=== PATIENT | female | born 1965 | race Hispanic/Latino ===

== ENCOUNTER → 2019-02-07 | Outpatient (CLI) | payer OTHER | END | disposition home or self-care (01) | LOC: RAH 15:19 | PROVIDERS: ATTEND Internal Medicine | DX: Z12.31 Encounter for screening mammogram for malignant neoplasm of breast (principal); N64.89 Other specified disorders of breast | CPT/HCPCS: 77067 ==

== ENCOUNTER → 2019-02-27 | Outpatient (CLI) | payer OTHER ==
[~2019-02-27] MED LIST: DULA1.5P SQ; LISI-617 PO; PRAV40TA3 PO
== END | disposition home or self-care (01) ==
LOC: RAH 10:47
PROVIDERS: ATTEND Internal Medicine
DX: N63.22 Unspecified lump in the left breast, upper inner quadrant (principal)
CPT/HCPCS: 76641; 77065

== ENCOUNTER 2019-03-02 05:34 | Day surgery (SDC) | payer OTHER ==
[~2019-03-02] VITALS: Ht 154.9 cm; Wt 67.1 kg
[2019-03-02] MEDS ORDERED: SODIUM CHLORIDE 0.9% 1000ML 1,000 ML IV ONE (05:46)
[2019-03-02 06:17] VITALS: BP 144/68
[2019-03-02] MEDS ORDERED: PRAV40TA3 PO (06:31)
[2019-03-02] MEDS ORDERED: LISI-617 PO (06:31)
[2019-03-02] MEDS ORDERED: DULA1.5P SQ (06:31)
[2019-03-02] MEDS ORDERED: LIDOCAINE HCL 1% 20 ML VIAL ONE (07:04)
[2019-03-02] MEDS ORDERED: PROPOFOL 10 MG/ML 20ML VIAL IV ONE (07:04)
[2019-03-02 07:21] VITALS: BP 100/52
== END 2019-03-02 07:47 | disposition home or self-care (01) ==
LOC: ENDO 05:34 → DAH 05:34 → ENDO 07:47
PROVIDERS: ATTEND Internal Medicine
DX: Z12.11 Encounter for screening for malignant neoplasm of colon (principal); E11.9 Type 2 diabetes mellitus without complications; E78.5 Hyperlipidemia, unspecified; Z88.0 Allergy status to penicillin; Z90.710 Acquired absence of both cervix and uterus
CPT/HCPCS: 45378; 82948 ×2; A4215; A4221; A4222; A4223; A4606; A4615; A4663; J2704; J7030

== ENCOUNTER 2019-04-29 22:52 | Emergency (ER) | payer OTHER ==
[2019-04-29] MEDS ORDERED: ACETAMINOPHEN EXTRA STRENGTH 500 MG TABLET ONE (23:42)
[2019-04-29 23:45] LABS: BASOPHILS % (AUTO) 0.7 % (0.0-5.0); HEMATOCRIT 33.9 % (36-48); LYMPHOCYTES % (AUTO) 27.4 % (21.0-51.0); MEAN CORPUSCULAR HEMOGLOBIN 27.4 pg (27.0-33.0); MEAN CORPUSCULAR HGB CONC 33.3 g/dL (32.0-36.0); MEAN CORPUSCULAR VOLUME 82.1 fL (79-99); MONOCYTES % (AUTO) 5.6 % (3.0-13.0); PLATELET COUNT (AUTO) 262 K/uL (130-400); RED BLOOD CELL COUNT(AUTO) 4.13 MIL/uL (4.00-5.50); RED CELL DISTRIBUTION WIDTH 12.2 % (11.0-15.5); WHITE BLOOD COUNT (AUTO) 9.8 K/uL (4.8-10.8)
[2019-04-29 23:57] LABS: CREATININE 0.6 mg/dL (0.5-1.5); POTASSIUM 4.1 mmol/L (3.5-5.1)
[2019-04-30 00:07] LABS: ALBUMIN 3.4 g/dL (3.5-5.0); BILIRUBIN,TOTAL 0.4 mg/dL (0.2-1.0); CRP QUANTITATIVE 20.2 mg/L (0.00-9.0); TOTAL PROTEIN, SERUM 7.9 g/dL (6.0-8.3); URIC ACID 3.6 mg/dL (2.6-7.2)
[2019-04-30 00:53] LABS: ERYTHROCYTE SEDIMENTATION RATE 80 MM/HR (0-30)
[2019-04-30] MEDS ORDERED: KETOROLAC TROMETHAMINE 30MG/ML ONE (00:56)
[2019-04-30] MEDS ORDERED: LIDOCAINE HCL-MPF 1% 2ML VIAL ONE (02:37)
[2019-04-30] MEDS ORDERED: CEFTRIAXONE SODIUM 1 GM ONE (02:38)
[2019-04-30] MEDS ORDERED: LIDOCAINE 5% TOPICAL PATCH TP ONE (02:38)
== END 2019-04-30 03:30 | disposition home or self-care (01) ==
LOC: EDH 22:52
DX: L03.115 Cellulitis of right lower limb (principal)
CPT/HCPCS: 29125; 36415; 73090; 73130; 80053; 84145; 84550; 85025; 85651; 86140; 96372 ×2; 99285; J0696; J1885; J3490

== ENCOUNTER 2019-11-06 23:04 | Emergency (ER) | payer OTHER ==
[2019-11-06 23:32] LABS: BASOPHILS % (AUTO) 0.7 % (0.0-5.0); EOSINOPHILS % (AUTO) 2.6 % (0.0-8.0); HEMATOCRIT 35.2 % (36-48); LYMPHOCYTES % (AUTO) 31.4 % (21.0-51.0); MEAN CORPUSCULAR HEMOGLOBIN 26.9 pg (27.0-33.0); MEAN CORPUSCULAR VOLUME 81.5 fL (79-99); MONOCYTES % (AUTO) 6.3 % (3.0-13.0); NEUTROPHILS % (AUTO) 58.4 % (40.0-77.0); PLATELET COUNT (AUTO) 341 K/uL (130-400); RED BLOOD CELL COUNT(AUTO) 4.32 MIL/uL (4.00-5.50); WHITE BLOOD COUNT (AUTO) 8.8 K/uL (4.8-10.8)
[2019-11-06] MEDS ORDERED: MORPHINE SULFATE 2 MG/ML 1ML SYG ONE (23:35)
[2019-11-06 23:41] LABS: CREATININE 0.8 mg/dL (0.5-1.5); POTASSIUM 4.1 mmol/L (3.5-5.1)
[2019-11-06 23:45] LABS: ALBUMIN 3.5 g/dL (3.5-5.0); BILIRUBIN,TOTAL 0.4 mg/dL (0.2-1.0); CRP QUANTITATIVE 34.6 mg/L (0.00-9.0); TOTAL PROTEIN, SERUM 8.5 g/dL (6.0-8.3)
[2019-11-07 00:36] LABS: ERYTHROCYTE SEDIMENTATION RATE 90 MM/HR (0-30)
[2019-11-07] MEDS ORDERED: LEVOFLOXACIN 500 MG/D5W 100 ML 100 ML ONE (01:18)
[2019-11-07] MEDS ORDERED: MORPHINE SULFATE 2 MG/ML 1ML SYG ONE (01:19)
[2019-11-07] MEDS ORDERED: KETOROLAC TROMETHAMINE 30MG/ML ONE (01:59)
[2019-11-07] MEDS ORDERED: DEXAMETHASONE SOD PHOSPHATE 4 MG/ML 1ML VIAL ONE (01:59)
[2019-11-07] MEDS ORDERED: SODIUM CHLORIDE 0.9% 500ML 500 ML IV ONE (02:00)
== END 2019-11-07 03:15 | disposition home or self-care (01) ==
LOC: EDH 23:04
DX: M77.11 Lateral epicondylitis, right elbow (principal); E11.65 Type 2 diabetes mellitus with hyperglycemia; I10 Essential (primary) hypertension; Z88.0 Allergy status to penicillin; Z90.710 Acquired absence of both cervix and uterus
CPT/HCPCS: 29105; 36415; 73070; 80053; 85025; 85651; 86140; 96365; 96375 ×2; 96376; 99284; J1100; J1885; J1956; J7040

== ENCOUNTER → 2019-11-12 | Outpatient (CLI) | payer OTHER ==
[2019-11-12 13:41] LABS: CREATININE 0.7 mg/dL (0.5-1.5); POTASSIUM 4.9 mmol/L (3.5-5.1)
== END | disposition home or self-care (01) ==
LOC: LAB 12:53
PROVIDERS: ATTEND Internal Medicine
DX: M25.521 Pain in right elbow (principal)
CPT/HCPCS: 36415; 80048

== ENCOUNTER 2019-11-13 00:25 | Emergency (ER) | payer OTHER ==
[2019-11-13] MEDS ORDERED: SODIUM CHLORIDE 0.9% 1000ML 1,000 ML IV ONE (00:26)
[2019-11-13] MEDS ORDERED: ASPIRIN 325 MG TABLET ONE (00:36)
[2019-11-13 00:46] LABS: BASOPHILS % (AUTO) 0.5 % (0.0-5.0); EOSINOPHILS % (AUTO) 1.3 % (0.0-8.0); HEMATOCRIT 34.3 % (36-48); LYMPHOCYTES % (AUTO) 31.2 % (21.0-51.0); MEAN CORPUSCULAR HEMOGLOBIN 26.8 pg (27.0-33.0); MEAN CORPUSCULAR HGB CONC 32.9 g/dL (32.0-36.0); MEAN CORPUSCULAR VOLUME 81.3 fL (79-99); MONOCYTES % (AUTO) 5.2 % (3.0-13.0); NEUTROPHILS % (AUTO) 61.3 % (40.0-77.0); PLATELET COUNT (AUTO) 260 K/uL (130-400); RED BLOOD CELL COUNT(AUTO) 4.22 MIL/uL (4.00-5.50); RED CELL DISTRIBUTION WIDTH 13.2 % (11.0-15.5)
[2019-11-13 00:53] LABS: CREATININE 0.9 mg/dL (0.5-1.5); POTASSIUM 4.6 mmol/L (3.5-5.1)
[2019-11-13 00:58] LABS: ALBUMIN 3.2 g/dL (3.5-5.0); BILIRUBIN,TOTAL 0.3 mg/dL (0.2-1.0); TOTAL PROTEIN, SERUM 7.9 g/dL (6.0-8.3)
[2019-11-13 01:07] LABS: INR 0.9 (0.85-1.15); PARTIAL THROMBOPLASTIN TIME 26.4 SEC (26.3-35.5); PROTHROMBIN TIME 9.8 SEC (9.6-11.6)
[2019-11-13] MEDS ORDERED: KETOROLAC TROMETHAMINE 60 MG/2 ML VIAL ONE (01:45)
[2019-11-13] MEDS ORDERED: ORPHENADRINE CITRATE 30 MG/ML ML ONE (01:45)
[2019-11-13] MEDS ORDERED: LIDOCAINE 5% TOPICAL PATCH TP ONE (01:46)
[2019-11-13] MEDS ORDERED: IOHEXOL 350 MG/ML 100ML INFUS..BTL IV ONE (02:44)
== END 2019-11-13 04:03 | disposition home or self-care (01) ==
LOC: EDH 00:25
DX: R07.89 Other chest pain (principal); M62.838 Other muscle spasm; M54.6 Pain in thoracic spine; I10 Essential (primary) hypertension; E11.9 Type 2 diabetes mellitus without complications; Z88.0 Allergy status to penicillin; Z90.710 Acquired absence of both cervix and uterus; Z98.890 Other specified postprocedural states
CPT/HCPCS: 36415; 71275; 80053; 82550; 82948; 83690; 83880; 84484; 85025; 85378; 85610; 85730; 93005; 96361; 96374; 96375; 99285; J1885; J2360; J7030; Q9967

== ENCOUNTER → 2019-11-16 | Outpatient (CLI) | payer OTHER ==
[~2019-11-16] MED LIST changes: +GADODIAMIDE 10 MMOL/20 ML VIAL IV ONE
== END | disposition home or self-care (01) ==
LOC: RAH 10:42
PROVIDERS: ATTEND Internal Medicine
DX: M25.521 Pain in right elbow (principal)
CPT/HCPCS: 73223; A9579

== ENCOUNTER 2020-03-03 07:17 | Emergency (ER) | payer OTHER ==
[~2020-03-03 07:17] MED LIST changes: -GADODIAMIDE 10 MMOL/20 ML VIAL IV ONE
[2020-03-03] MEDS ORDERED: MAG HYDROX/AL HYDROX/SIMETH ES 30 ML SUSP UDCUP ONE (07:48)
[2020-03-03] MEDS ORDERED: LIDOCAINE HCL 2% VISCOUS 15 ML UDCUP ONE (07:48)
[2020-03-03 07:54] LABS: BASOPHILS % (AUTO) 0.6 % (0.0-5.0); EOSINOPHILS % (AUTO) 1.7 % (0.0-8.0); HEMATOCRIT 37.1 % (36-48); LYMPHOCYTES % (AUTO) 27.6 % (21.0-51.0); MEAN CORPUSCULAR HEMOGLOBIN 27.5 pg (27.0-33.0); MEAN CORPUSCULAR HGB CONC 33.7 g/dL (32.0-36.0); MEAN CORPUSCULAR VOLUME 81.5 fL (79-99); MONOCYTES % (AUTO) 4.8 % (3.0-13.0); NEUTROPHILS % (AUTO) 64.8 % (40.0-77.0); PLATELET COUNT (AUTO) 265 K/uL (130-400); RED BLOOD CELL COUNT(AUTO) 4.55 MIL/uL (4.00-5.50); RED CELL DISTRIBUTION WIDTH 11.9 % (11.0-15.5); WHITE BLOOD COUNT (AUTO) 7.7 K/uL (4.8-10.8)
[2020-03-03 08:11] LABS: APPEARANCE,URINE Clear (CLEAR); BILIRUBIN,URINE Negative (NEGATIVE); COLOR,URINE Yellow (YELLOW); GLUCOSE, URINE (UA) >=1000 mg/dL (NEGATIVE); KETONES,URINE Negative (NEGATIVE); LEUKOCYTE ESTERASE ,URINE Negative (NEGATIVE); NITRATE,URINE Negative (NEGATIVE); OCCULT BLOOD,URINE Negative (NEGATIVE); PROTEIN,URINE Negative (NEGATIVE); UROBILINOGEN,URINE 0.2 mg/dL (0.2-1.0)
[2020-03-03 08:17] LABS: BACTERIA,URINE Rare /HPF (None Seen); SQUAMOUS EPITHELIAL CELL,UR Rare /HPF (0-2); YEAST,URINE BUDDING Few /HPF (None Seen)
[2020-03-03 08:17] LABS: ALBUMIN 3.6 g/dL (3.5-5.0); BILIRUBIN,TOTAL 0.3 mg/dL (0.2-1.0); CREATININE 0.6 mg/dL (0.5-1.5); POTASSIUM 3.9 mmol/L (3.5-5.1); TOTAL PROTEIN, SERUM 8.2 g/dL (6.0-8.3)
[2020-03-03] MEDS ORDERED: FLUCONAZOLE 100 MG TAB ONE (09:28)
== END 2020-03-03 09:43 | disposition home or self-care (01) ==
LOC: EDH 07:17
DX: E11.65 Type 2 diabetes mellitus with hyperglycemia (principal); B37.9 Candidiasis, unspecified; I10 Essential (primary) hypertension; Z88.0 Allergy status to penicillin; Z90.710 Acquired absence of both cervix and uterus; Z98.890 Other specified postprocedural states
CPT/HCPCS: 36415; 80053; 81001; 82948; 84484; 85025; 93005; 96360; 96361

== ENCOUNTER 2020-04-26 20:51 | Emergency (ER) | payer OTHER ==
[2020-04-26] MEDS ORDERED: SODIUM CHLORIDE 0.9% 250 ML IV ONE (21:03)
[2020-04-26 21:25] LABS: BASOPHILS % (AUTO) 0.5 % (0.0-5.0); EOSINOPHILS % (AUTO) 2.8 % (0.0-8.0); LYMPHOCYTES % (AUTO) 30.4 % (21.0-51.0); MEAN CORPUSCULAR HEMOGLOBIN 27.2 pg (27.0-33.0); MEAN CORPUSCULAR HGB CONC 32.9 g/dL (32.0-36.0); MEAN CORPUSCULAR VOLUME 82.7 fL (79-99); MONOCYTES % (AUTO) 6.4 % (3.0-13.0); NEUTROPHILS % (AUTO) 59.6 % (40.0-77.0); PLATELET COUNT (AUTO) 234 K/uL (130-400); RED BLOOD CELL COUNT(AUTO) 4.23 MIL/uL (4.00-5.50); RED CELL DISTRIBUTION WIDTH 12.1 % (11.0-15.5); WHITE BLOOD COUNT (AUTO) 9.4 K/uL (4.8-10.8)
[2020-04-26] MEDS ORDERED: ONDANSETRON HCL 4 MG/2 ML VIAL ONE (21:35)
[2020-04-26] MEDS ORDERED: MORPHINE SULFATE 4 MG/1ML SYG ONE (21:35)
[2020-04-26 21:43] LABS: ALBUMIN 3.2 g/dL (3.5-5.0); BILIRUBIN,TOTAL 0.3 mg/dL (0.2-1.0); CREATININE 0.8 mg/dL (0.5-1.5); POTASSIUM 4.1 mmol/L (3.5-5.1); TOTAL PROTEIN, SERUM 7.8 g/dL (6.0-8.3)
[2020-04-26] MEDS ORDERED: INSULIN HUMULIN R 100 UNIT/ML 3ML ONE (23:16)
== END 2020-04-27 00:20 | disposition home or self-care (01) ==
LOC: EDH 20:51
DX: M79.641 Pain in right hand (principal); E08.65 Diabetes mellitus due to underlying condition with hyperglycemia; I10 Essential (primary) hypertension; Z88.0 Allergy status to penicillin; Z90.710 Acquired absence of both cervix and uterus; Z98.890 Other specified postprocedural states
CPT/HCPCS: 36415; 71045; 73130; 80053; 82010; 82550; 82948 ×2; 83690; 84484; 84550; 85025; 93005; 96361; 96374; 96375; 99285; J1815; J2270; J2405; J7050

== ENCOUNTER → 2020-04-28 | Outpatient (CLI) | payer OTHER ==
[2020-04-28 12:01] LABS: BASOPHILS % (AUTO) 0.7 % (0.0-5.0); EOSINOPHILS % (AUTO) 2.7 % (0.0-8.0); HEMATOCRIT 36.4 % (36-48); MEAN CORPUSCULAR HEMOGLOBIN 27.4 pg (27.0-33.0); MEAN CORPUSCULAR HGB CONC 33.2 g/dL (32.0-36.0); MEAN CORPUSCULAR VOLUME 82.5 fL (79-99); MONOCYTES % (AUTO) 4.4 % (3.0-13.0); NEUTROPHILS % (AUTO) 65.8 % (40.0-77.0); PLATELET COUNT (AUTO) 259 K/uL (130-400); RED BLOOD CELL COUNT(AUTO) 4.41 MIL/uL (4.00-5.50); RED CELL DISTRIBUTION WIDTH 11.9 % (11.0-15.5); WHITE BLOOD COUNT (AUTO) 9.1 K/uL (4.8-10.8)
[2020-04-28 12:08] LABS: HEMOGLOBIN A1C 12.1 % (4.0-6.0)
[2020-04-28 12:13] LABS: ALBUMIN 3.4 g/dL (3.5-5.0); BILIRUBIN,TOTAL 0.5 mg/dL (0.2-1.0); CREATININE 0.7 mg/dL (0.5-1.5); POTASSIUM 4.6 mmol/L (3.5-5.1); TOTAL PROTEIN, SERUM 8.4 g/dL (6.0-8.3); URIC ACID 3.4 mg/dL (2.6-7.2)
[2020-04-28 13:21] LABS: ERYTHROCYTE SEDIMENTATION RATE 125 MM/HR (0-30)
== END | disposition home or self-care (01) ==
LOC: LAB 11:34
PROVIDERS: ATTEND Internal Medicine
DX: E11.65 Type 2 diabetes mellitus with hyperglycemia (principal); M25.431 Effusion, right wrist
CPT/HCPCS: 36415; 80053; 83036; 84550; 85025; 85651; 86038; 86140; 86215; 86235; 86431

== ENCOUNTER 2020-04-30 11:34 | Observation (INO) | payer OTHER ==
[~2020-04-30] VITALS: Ht 154.9 cm; Wt 67.3 kg
[~2020-04-30 11:34] MED LIST changes: -LISI-617 PO; +LISI-809 PO
[2020-04-30] MEDS: PANTOPRAZOLE 40 MG/VIAL IVP SCH (11:53)
[2020-04-30 11:54] LABS: BASOPHILS % (AUTO) 0.5 % (0.0-5.0); EOSINOPHILS % (AUTO) 1.7 % (0.0-8.0); HEMATOCRIT 39.7 % (36-48); LYMPHOCYTES % (AUTO) 36.1 % (21.0-51.0); MEAN CORPUSCULAR HEMOGLOBIN 27.2 pg (27.0-33.0); MEAN CORPUSCULAR VOLUME 82.5 fL (79-99); MONOCYTES % (AUTO) 4.4 % (3.0-13.0); NEUTROPHILS % (AUTO) 56.8 % (40.0-77.0); PLATELET COUNT (AUTO) 308 K/uL (130-400); RED BLOOD CELL COUNT(AUTO) 4.81 MIL/uL (4.00-5.50); RED CELL DISTRIBUTION WIDTH 12.2 % (11.0-15.5); WHITE BLOOD COUNT (AUTO) 13.1 K/uL (4.8-10.8)
[2020-04-30] MEDS ORDERED: GLUCAGON 1MG KIT 1 MG ML IM PRN (12:00)
[2020-04-30] MEDS ORDERED: 1/2 NORMAL SALINE 1,000 ML IV SCH (12:00)
[2020-04-30] MEDS ORDERED: DEXTROSE 50%-WATER 50 ML DISP.SYRIN IV PRN (12:00)
[2020-04-30 12:07] LABS: CREATININE 0.7 mg/dL (0.5-1.5); POTASSIUM 3.8 mmol/L (3.5-5.1)
[2020-04-30 12:16] LABS: ALBUMIN 3.9 g/dL (3.5-5.0); BILIRUBIN,TOTAL 0.3 mg/dL (0.2-1.0); TOTAL PROTEIN, SERUM 9.3 g/dL (6.0-8.3)
[2020-04-30 13:13] LABS: APPEARANCE,URINE Clear (CLEAR); BILIRUBIN,URINE Negative (NEGATIVE); COLOR,URINE Yellow (YELLOW); GLUCOSE, URINE (UA) Negative (NEGATIVE); KETONES,URINE Negative (NEGATIVE); LEUKOCYTE ESTERASE ,URINE Negative (NEGATIVE); NITRATE,URINE Negative (NEGATIVE); OCCULT BLOOD,URINE Negative (NEGATIVE); PROTEIN,URINE Negative (NEGATIVE); UROBILINOGEN,URINE 0.2 mg/dL (0.2-1.0)
[2020-04-30] MEDS ORDERED: CEFTRIAXONE SODIUM 2 GM VIAL ONE (13:28)
[2020-04-30 16:29] VITALS: BP 108/58
[2020-04-30] MEDS: INSULIN R PO SS1 SQ SCH ×2 (16:30→20:53)
[2020-04-30] MEDS: METFORMIN HCL 500 MG TAB.SR.24H PO SCH (17:08)
[2020-04-30 19:30] VITALS: BP 122/63
[2020-04-30] MEDS: INSULIN GLARGINE 100 UNITS/ML 10 ML VIAL SQ SCH (20:52)
[2020-04-30] MEDS: MORPHINE SULFATE 4 MG/1ML SYG IVP PRN (22:01)
[2020-04-30 23:40] VITALS: BP 118/66
[2020-05-01 03:46] LABS: HEMATOCRIT 33.9 % (36-48); MEAN CORPUSCULAR HEMOGLOBIN 27.5 pg (27.0-33.0); MEAN CORPUSCULAR HGB CONC 32.7 g/dL (32.0-36.0); MEAN CORPUSCULAR VOLUME 84.1 fL (79-99); RED BLOOD CELL COUNT(AUTO) 4.03 MIL/uL (4.00-5.50); RED CELL DISTRIBUTION WIDTH 12.4 % (11.0-15.5); WHITE BLOOD COUNT (AUTO) 9.7 K/uL (4.8-10.8)
[2020-05-01 03:58] LABS: CREATININE 0.7 mg/dL (0.5-1.5); CRP QUANTITATIVE 18.2 mg/L (0.00-9.0); POTASSIUM 3.9 mmol/L (3.5-5.1)
[2020-05-01 04:01] VITALS: BP 114/51
[2020-05-01] MEDS: INSULIN R PO SS1 SQ SCH ×4 (05:59→21:00)
[2020-05-01 08:50] VITALS: BP 92/69
[2020-05-01] MEDS ORDERED: GLIMEPIRIDE 2 MG TABLET PO SCH (09:00)
[2020-05-01] MEDS ORDERED: PREDNISONE 20 MG TABLET PO SCH (09:00)
[2020-05-01] MEDS ORDERED: LISINOPRIL 5 MG TABLET PO SCH (09:00)
[2020-05-01] MEDS: PANTOPRAZOLE 40 MG/VIAL IVP SCH (09:14)
[2020-05-01] MEDS: METFORMIN HCL 500 MG TAB.SR.24H PO SCH ×2 (09:20→17:50)
[2020-05-01] MEDS ORDERED: KETOROLAC TROMETHAMINE 30MG/ML IV SCH (11:53)
[2020-05-01 12:11] VITALS: BP 116/62
[2020-05-01] MEDS ORDERED: CEFTRIAXONE SODIUM 2 GM VIAL IVP SCH (13:00)
[2020-05-01 16:54] VITALS: BP 111/58
[2020-05-01 20:00] VITALS: BP 138/80
[2020-05-01] MEDS: INSULIN GLARGINE 100 UNITS/ML 10 ML VIAL SQ SCH (21:29)
[2020-05-02] VITALS: BP 137/77
[2020-05-02] MEDS: MORPHINE SULFATE 4 MG/1ML SYG IVP PRN (03:38)
[2020-05-02 04:00] VITALS: BP 140/81
[2020-05-02 04:40] LABS: HEMATOCRIT 32.6 % (36-48); MEAN CORPUSCULAR HEMOGLOBIN 27.6 pg (27.0-33.0); MEAN CORPUSCULAR HGB CONC 32.8 g/dL (32.0-36.0); RED BLOOD CELL COUNT(AUTO) 3.88 MIL/uL (4.00-5.50); RED CELL DISTRIBUTION WIDTH 12.2 % (11.0-15.5); WHITE BLOOD COUNT (AUTO) 10.9 K/uL (4.8-10.8)
[2020-05-02 05:05] LABS: CREATININE 0.6 mg/dL (0.5-1.5); POTASSIUM 3.1 mmol/L (3.5-5.1)
[2020-05-02] MEDS: INSULIN R PO SS1 SQ SCH (06:46)
[2020-05-02] MEDS ORDERED: POTASSIUM CHLORIDE 20 MEQ ERTAB PO ONE (06:52)
[2020-05-02] MEDS ORDERED: METHYLPREDNISOLONE SOD SUCC 40MG/ML 1ML ONE (06:52)
[2020-05-02] MEDS ORDERED: POTASSIUM CHLORIDE 20 MEQ ERTAB PO SCH (07:00)
[2020-05-02] MEDS ORDERED: GLIM2TAB30 PO (07:30)
[2020-05-02] MEDS ORDERED: METF-446 PO (07:30)
[2020-05-02] MEDS ORDERED: PRED20TA3 PO (07:30)
[2020-05-02] MEDS ORDERED: METFORMIN HCL 500 MG TABLET PO SCH (08:00)
[2020-05-02] MEDS ORDERED: METHYLPREDNISOLONE SOD SUCC 125MG/2ML VIAL IVP SCH (08:00)
[2020-05-02] MEDS ORDERED: LISINOPRIL 10 MG TABLET PO SCH (09:00)
[2020-05-02] MEDS ORDERED: PREDNISONE 20 MG TABLET PO SCH (09:00)
[2020-05-02] MEDS ORDERED: GLIMEPIRIDE 2 MG TABLET PO SCH (09:00)
[2020-05-02] MEDS ORDERED: **HM**TRULICITY 1.5MG SQ SCH (09:00)
[2020-05-02] MEDS ORDERED: NON-FORMULARY MEDICATION 1 EACH (Metformin HCl 1,000 MG) PO SCH (09:00)
== END 2020-05-02 08:10 | disposition home or self-care (01) ==
LOC: EDH 11:34 → 3CH 11:35
PROVIDERS: ADMIT Internal Medicine; ATTEND Internal Medicine
DX: M19.031 Primary osteoarthritis, right wrist (principal); K29.70 Gastritis, unspecified, without bleeding; I10 Essential (primary) hypertension; E11.9 Type 2 diabetes mellitus without complications; E78.00 Pure hypercholesterolemia, unspecified; Z90.710 Acquired absence of both cervix and uterus; Z79.899 Other long term (current) drug therapy; Z88.0 Allergy status to penicillin
CPT/HCPCS: 36415 ×3; 71045; 74176; 80048 ×2; 80053; 81003; 82948 ×7; 83605; 84550; 85025; 85027 ×2; 85651 ×3; 86140 ×3; 86431; 87040 ×2; 87088; 96372 ×3; 96374; 96375 ×2; 96376; 99284; C9113; G0378 ×43; J0696 ×2; J1815 ×2; J1885; J2270 ×2; J2920

== ENCOUNTER 2021-06-02 23:37 | Emergency (ER) | payer OTHER ==
[~2021-06-02] VITALS: Ht 154.9 cm; Wt 69.9 kg
[~2021-06-02 23:37] MED LIST changes: +GLIM2TAB30 PO; -LISI-809 PO; +LISI5TAB21 PO; +METF-446 PO; -PRAV40TA3 PO; +PRED20TA3 PO
[2021-06-02 23:59] VITALS: BP 151/95
[2021-06-03] MEDS ORDERED: KETOROLAC 30MG VIAL (30MG/ML) IV ONE
[2021-06-03 00:43] LABS: BASOPHILS % (AUTO) 0.6 % (0.0-5.0); EOSINOPHILS % (AUTO) 1.3 % (0.0-8.0); LYMPHOCYTES % (AUTO) 29.8 % (21.0-51.0); MEAN CORPUSCULAR HEMOGLOBIN 27.4 pg (27.0-33.0); MEAN CORPUSCULAR HGB CONC 32.2 g/dL (32.0-36.0); MEAN CORPUSCULAR VOLUME 84.9 fL (79-99); MONOCYTES % (AUTO) 5.8 % (3.0-13.0); NEUTROPHILS % (AUTO) 62.1 % (40.0-77.0); PLATELET COUNT (AUTO) 281 K/uL (130-400); RED BLOOD CELL COUNT(AUTO) 4.24 MIL/uL (4.00-5.50); RED CELL DISTRIBUTION WIDTH 12.3 % (11.0-15.5); WHITE BLOOD COUNT (AUTO) 9.9 K/uL (4.8-10.8)
[2021-06-03 00:57] LABS: CREATININE 0.6 mg/dL (0.5-1.5); POTASSIUM 3.9 mmol/L (3.5-5.1)
[2021-06-03 01:02] LABS: ALBUMIN 3.1 g/dL (3.5-5.0); BILIRUBIN,TOTAL 0.3 mg/dL (0.2-1.0); CRP QUANTITATIVE 44.6 mg/L (0.00-9.0); TOTAL PROTEIN, SERUM 7.6 g/dL (6.0-8.3)
[2021-06-03] MEDS ORDERED: DICL50TA9 PO (02:07)
== END 2021-06-03 02:24 | disposition home or self-care (01) ==
LOC: EDH 23:37
DX: M06.4 Inflammatory polyarthropathy (principal); M25.531 Pain in right wrist; E11.9 Type 2 diabetes mellitus without complications; E78.00 Pure hypercholesterolemia, unspecified; F17.210 Nicotine dependence, cigarettes, uncomplicated; I10 Essential (primary) hypertension; Z88.0 Allergy status to penicillin; Z79.899 Other long term (current) drug therapy; Z79.84 Long term (current) use of oral hypoglycemic drugs; Z98.890 Other specified postprocedural states
CPT/HCPCS: 36415; 73130; 80053; 85025; 86140; 96374; 99284; J1885

== ENCOUNTER 2021-08-26 07:52 | Emergency (ER) | payer OTHER ==
[~2021-08-26] VITALS: Ht 157.5 cm; Wt 67.6 kg
[~2021-08-26 07:52] MED LIST changes: +DICL50TA9 PO
[2021-08-26] MEDS ORDERED: KETOROLAC 15MG/ML VIAL (15MG/ML) IV ONE (08:30)
[2021-08-26 08:48] LABS: BASOPHILS % (AUTO) 0.6 % (0.0-5.0); EOSINOPHILS % (AUTO) 1.5 % (0.0-8.0); HEMATOCRIT 35.2 % (36-48); LYMPHOCYTES % (AUTO) 29.8 % (21.0-51.0); MEAN CORPUSCULAR HGB CONC 33.2 g/dL (32.0-36.0); MEAN CORPUSCULAR VOLUME 81.3 fL (79-99); MONOCYTES % (AUTO) 4.5 % (3.0-13.0); NEUTROPHILS % (AUTO) 63.2 % (40.0-77.0); PLATELET COUNT (AUTO) 310 K/uL (130-400); RED BLOOD CELL COUNT(AUTO) 4.33 MIL/uL (4.00-5.50); RED CELL DISTRIBUTION WIDTH 11.8 % (11.0-15.5)
[2021-08-26 08:54] LABS: ALBUMIN 3.4 g/dL (3.5-5.0); CREATININE 0.7 mg/dL (0.5-1.5); POTASSIUM 4.3 mmol/L (3.5-5.1)
[2021-08-26 08:57] LABS: BILIRUBIN,TOTAL 0.3 mg/dL (0.2-1.0); TOTAL PROTEIN, SERUM 7.9 g/dL (6.0-8.3)
[2021-08-26] MEDS ORDERED: INSULIN HUMULIN R 100 UNIT/ML 3ML ONE (09:18)
[2021-08-26] MEDS ORDERED: GABAPENTIN 300 MG CAPSULE PO SCH (10:00)
[2021-08-26 10:19] VITALS: BP 103/53
[2021-08-26] MEDS ORDERED: GABA300C PO (10:24)
[2021-08-26] MEDS ORDERED: INSULIN HUMULIN R 100 UNIT/ML 3ML SQ SCH (11:30)
== END 2021-08-26 10:32 | disposition home or self-care (01) ==
LOC: EDH 07:52
DX: E11.40 Type 2 diabetes mellitus with diabetic neuropathy, unspecified (principal); R60.9 Edema, unspecified
CPT/HCPCS: 36415; 80053; 82948; 85025; 93971; 96372; 96374; 99285; J1815; J1885

== ENCOUNTER → 2022-04-21 | Outpatient (CLI) | payer OTHER ==
[~2022-04-21] MED LIST changes: +GABA300C PO
[2022-04-21 09:38] LABS: BASOPHILS % (AUTO) 0.8 % (0.0-5.0); EOSINOPHILS % (AUTO) 1.5 % (0.0-8.0); HEMATOCRIT 37.7 % (36-48); LYMPHOCYTES % (AUTO) 33.6 % (21.0-51.0); MEAN CORPUSCULAR HEMOGLOBIN 26.9 pg (27.0-33.0); MEAN CORPUSCULAR HGB CONC 33.4 g/dL (32.0-36.0); MEAN CORPUSCULAR VOLUME 80.6 fL (79-99); MONOCYTES % (AUTO) 4.3 % (3.0-13.0); NEUTROPHILS % (AUTO) 59.3 % (40.0-77.0); PLATELET COUNT (AUTO) 322 K/uL (130-400); RED BLOOD CELL COUNT(AUTO) 4.68 MIL/uL (4.00-5.50); RED CELL DISTRIBUTION WIDTH 11.9 % (11.0-15.5)
[2022-04-21 09:48] LABS: INR 0.94 (0.85-1.15); PROTHROMBIN TIME 10.3 SEC (9.6-11.6)
[2022-04-21 09:49] LABS: PARTIAL THROMBOPLASTIN TIME 25.8 SEC (26.3-35.5)
[2022-04-21 09:51] LABS: HEMOGLOBIN A1C 11.9 % (4.0-6.0)
[2022-04-21 09:57] LABS: ALBUMIN 3.8 g/dL (3.5-5.0); CREATININE 0.7 mg/dL (0.5-1.5); POTASSIUM 4.1 mmol/L (3.5-5.1); TOTAL PROTEIN, SERUM 8.9 g/dL (6.0-8.3)
[2022-04-21 10:11] LABS: APPEARANCE,URINE CLEAR (CLEAR); BILIRUBIN,URINE NEGATIVE (NEGATIVE); COLOR,URINE COLORLESS (YELLOW); GLUCOSE, URINE (UA) >=1000 mg/dL (NEGATIVE); KETONES,URINE NEGATIVE (NEGATIVE); LEUKOCYTE ESTERASE ,URINE NEGATIVE Leu/uL (NEGATIVE); NITRATE,URINE NEGATIVE (NEGATIVE); OCCULT BLOOD,URINE NEGATIVE (NEGATIVE); PROTEIN,URINE NEGATIVE (NEGATIVE); UROBILINOGEN,URINE 0.2 mg/dL (0.2-1.0)
[2022-04-21 10:30] LABS: BACTERIA,URINE RARE /HPF (None Seen); SQUAMOUS EPITHELIAL CELL,UR RARE /HPF (0-2); WBC,URINE 0-1 /HPF (0-1)
== END | disposition home or self-care (01) ==
LOC: LAB 08:59
PROVIDERS: ATTEND Internal Medicine
DX: E11.42 Type 2 diabetes mellitus with diabetic polyneuropathy (principal)
CPT/HCPCS: 36415; 80053; 81001; 83036; 85025; 85610; 85730; 87077; 87088; 87186

== ENCOUNTER 2022-05-14 07:53 | Day surgery (SDC) | payer OTHER ==
[2022-05-11 10:13] VITALS: BP 145/71
[2022-05-11 10:19] LABS: BASOPHILS % (AUTO) 0.6 % (0.0-5.0); EOSINOPHILS % (AUTO) 1.2 % (0.0-8.0); HEMATOCRIT 34.9 % (36-48); LYMPHOCYTES % (AUTO) 26.7 % (21.0-51.0); MEAN CORPUSCULAR HGB CONC 32.4 g/dL (32.0-36.0); MEAN CORPUSCULAR VOLUME 83.5 fL (79-99); MONOCYTES % (AUTO) 6.7 % (3.0-13.0); NEUTROPHILS % (AUTO) 64.5 % (40.0-77.0); PLATELET COUNT (AUTO) 342 K/uL (130-400); RED BLOOD CELL COUNT(AUTO) 4.18 MIL/uL (4.00-5.50); RED CELL DISTRIBUTION WIDTH 12.4 % (11.0-15.5); WHITE BLOOD COUNT (AUTO) 9.1 K/uL (4.8-10.8)
[2022-05-11 10:35] LABS: ALBUMIN 3.1 g/dL (3.5-5.0); BILIRUBIN,DIRECT 0.1 mg/dL (0.0-0.3); CREATININE 0.7 mg/dL (0.5-1.5); POTASSIUM 4.5 mmol/L (3.5-5.1); TOTAL PROTEIN, SERUM 8.1 g/dL (6.0-8.3)
[2022-05-11 10:58] LABS: INR 0.98 (0.85-1.15); PROTHROMBIN TIME 10.7 SEC (9.6-11.6)
[2022-05-11 11:00] LABS: PARTIAL THROMBOPLASTIN TIME 28.9 SEC (26.3-35.5)
[2022-05-14] VITALS (23 sets, daily range): BP systolic 111–163; BP diastolic 48–80
[~2022-05-14] VITALS: Ht 157.5 cm; Wt 63.2 kg
[~2022-05-14 07:53] MED LIST changes: -DICL50TA9 PO; +EMPA1TAB7 PO; -GLIM2TAB30 PO; +GLIM4TAB36 PO; +INSU100I24 SQ; -LISI5TAB21 PO; +LOSA1TAB37 PO; -PRED20TA3 PO
[2022-05-14] MEDS ORDERED: CEFAZOLIN SODIUM 2 GM VIAL IVPB PRN (08:00)
[2022-05-14] MEDS ORDERED: LACTATED RINGERS 1000ML 1,000 ML IV SCH (08:00)
[2022-05-14] MEDS ORDERED: 0.9%NACL 1000ML 1,000 ML IV ONE (08:06)
[2022-05-14] MEDS ORDERED: BUPIVACAINE/PF 0.25% 10ML VIAL IJ ONE (08:34)
[2022-05-14] MEDS ORDERED: CLINDAMYCIN IVPB 600MG/50ML 50 ML IV ONE (09:44)
[2022-05-14] MEDS ORDERED: ROCURONIUM 10MG/1ML SYR 10 MG/ML ML ONE (09:49)
[2022-05-14] MEDS ORDERED: SUCCINYLCHOLINE 200MG/10ML SYR ONE (09:49)
[2022-05-14] MEDS ORDERED: MIDAZOLAM HCL 1 MG/ML 2ML VIAL ONE (09:49)
[2022-05-14] MEDS ORDERED: PROPOFOL 10 MG/ML 20ML VIAL IV ONE (09:49)
[2022-05-14] MEDS ORDERED: LIDOCAINE PF 100MG/5ML (2%) SYRINGE 5ML ONE (09:49)
[2022-05-14] MEDS ORDERED: FENTANYL CITRATE PF 50 MCG/1 ML 5ML AMP IV ONE (09:49)
[2022-05-14] MEDS ORDERED: FAMOTIDINE 20MG VIAL IV ONE (09:59)
[2022-05-14] MEDS ORDERED: HYDROMORPHONE 1 MG INJ ONE ×2 (10:00→11:54)
[2022-05-14] MEDS ORDERED: GLYCOPYRROLATE 1 MG/5 ML SYRINGE ONE (10:25)
[2022-05-14] MEDS ORDERED: EPHEDRINE SULFATE 50 MG/ML AMPULE ONE (10:25)
[2022-05-14] MEDS ORDERED: NEOSTIGMINE 5MG/5ML SYR IV ONE (10:25)
[2022-05-14] MEDS ORDERED: ONDANSETRON 4MG INJ ONE (10:50)
[2022-05-14] MEDS ORDERED: FENTANYL CITRATE PF 50 MCG/1 ML 2ML VIAL ONE (12:12)
== END 2022-05-14 13:30 | disposition home or self-care (01) ==
LOC: DAH 07:53
PROVIDERS: ATTEND Surgery
DX: K43.0 Incisional hernia with obstruction, without gangrene (principal); Z20.822 Contact with and (suspected) exposure to COVID-19; I10 Essential (primary) hypertension; E11.9 Type 2 diabetes mellitus without complications; E66.9 Obesity, unspecified; F17.200 Nicotine dependence, unspecified, uncomplicated; Z79.01 Long term (current) use of anticoagulants; Z79.899 Other long term (current) drug therapy; Z90.710 Acquired absence of both cervix and uterus; Z98.891 History of uterine scar from previous surgery; Z88.0 Allergy status to penicillin; Z68.26 Body mass index [BMI] 26.0-26.9, adult
CPT/HCPCS: 80076; 80048; 84703; 85025; 85610; 85730; 87426; 36415; 49594; 82948; A6260; A4663; J7030 ×3; A4344; J7120; J3490 ×5; J3010 ×2; J1170; J0330; J2710; J2001; J2250; J2704; J2405; A4930 ×2; C1769 ×3; A4649 ×2; A4615; A4215; A4223; A4222; A4221; A4600

== ENCOUNTER 2022-11-02 08:24 | Emergency (ER) | payer OTHER ==
[~2022-11-02] VITALS: Ht 154.9 cm; Wt 60.8 kg
[~2022-11-02 08:24] MED LIST changes: +IBUP-1493 PO; +NAPR375T6 PO
[2022-11-02 08:49] LABS: BASOPHILS # (AUTO) 0.09 K/uL (0.00-0.20); BASOPHILS % (AUTO) 0.8 % (0.0-5.0); EOSINOPHILS # (AUTO) 0.32 K/uL (0.00-0.70); EOSINOPHILS % (AUTO) 2.9 % (0.0-8.0); HEMATOCRIT 33.9 % (36-48); IMMATURE GRANULOCYTE ABSOLUTE 0.06 K/uL (0-1); LYMPHOCYTES # (AUTO) 3.9 K/uL (1.0-4.8); LYMPHOCYTES % (AUTO) 35.5 % (21.0-51.0); MEAN CORPUSCULAR HEMOGLOBIN 27.2 pg (27.0-33.0); MEAN CORPUSCULAR HGB CONC 33.3 g/dL (32.0-36.0); MEAN CORPUSCULAR VOLUME 81.5 fL (79-99); MONOCYTES # (AUTO) 0.6 K/uL (0.1-1.0); MONOCYTES % (AUTO) 5.2 % (3.0-13.0); NEUTROPHILS # (AUTO) 6.1 K/uL (1.8-7.7); NEUTROPHILS % (AUTO) 55.1 % (40.0-77.0); PLATELET COUNT (AUTO) 306 K/uL (130-400); RED BLOOD CELL COUNT(AUTO) 4.16 MIL/uL (4.00-5.50); RED CELL DISTRIBUTION WIDTH 12.6 % (11.0-15.5)
[2022-11-02 08:50] LABS: BILIRUBIN,URINE NEGATIVE (NEGATIVE); COLOR,URINE YELLOW (YELLOW); GLUCOSE, URINE (UA) 30 mg/dL (NEGATIVE); KETONES,URINE NEGATIVE (NEGATIVE); LEUKOCYTE ESTERASE ,URINE 250 Leu/uL (NEGATIVE); NITRATE,URINE NEGATIVE (NEGATIVE); OCCULT BLOOD,URINE NEGATIVE (NEGATIVE); PH,URINE 5.5 (5.0-8.0); PROTEIN,URINE 20 mg/dL (NEGATIVE)
[2022-11-02 08:52] LABS: ADD UA MICROSCOPIC YES; APPEARANCE,URINE HAZY (CLEAR)
[2022-11-02 08:56] LABS: BACTERIA,URINE MANY /HPF (None Seen); MUCUS,URINE RARE LPF (None Seen); RBC,URINE 0-1 /HPF (0-1); SQUAMOUS EPITHELIAL CELL,UR MOD /HPF (0-2)
[2022-11-02] MEDS ORDERED: FAMOTIDINE 20MG VIAL IV ONE (09:00)
[2022-11-02] MEDS ORDERED: LACTATED RINGERS 1000ML 1,000 ML IV ONE (09:00)
[2022-11-02] MEDS ORDERED: MORPHINE 2 MG SYG IVP ONE (09:00)
[2022-11-02] MEDS ORDERED: ONDANSETRON 4MG INJ IVP ONE (09:00)
[2022-11-02 09:06] LABS: ALBUMIN 3.6 g/dL (3.5-5.0); BILIRUBIN,TOTAL 0.3 mg/dL (0.2-1.0); CREATININE 0.7 mg/dL (0.5-1.5); MAGNESIUM 1.7 mg/dL (1.80-2.40); POTASSIUM 4.1 mmol/L (3.5-5.1); TOTAL PROTEIN, SERUM 8.4 g/dL (6.0-8.3)
[2022-11-02] MEDS ORDERED: CEFTRIAXONE 1G VIAL IVPB ONE (12:00)
[2022-11-02] MEDS ORDERED: IOHEXOL-350 75 ML VIAL IV ONE (12:11)
[2022-11-02 14:52] VITALS: BP 151/82; PULSE 78; RESP 18; O2SAT 100
[2022-11-02] MEDS ORDERED: CEPH500T PO (15:02)
[2022-11-02] MEDS ORDERED: ONDA4TAB10 PO (15:02)
[2022-11-02] MEDS ORDERED: PANT20TA18 PO (15:02)
== END 2022-11-02 15:19 | disposition home or self-care (01) ==
LOC: EDH 08:24
DX: R10.13 Epigastric pain (principal); N39.0 Urinary tract infection, site not specified; R51.9 Headache, unspecified; I10 Essential (primary) hypertension; E11.9 Type 2 diabetes mellitus without complications; E78.00 Pure hypercholesterolemia, unspecified; Z79.84 Long term (current) use of oral hypoglycemic drugs; Z79.899 Other long term (current) drug therapy; Z98.890 Other specified postprocedural states
CPT/HCPCS: 99285; 70450; 96365; 96375; 96366; 96361; 83735; 84484; 80053; 83690; 85025; 87040 ×2; 87077; 87088; 87186; 82948; 81001; 36415; 74177; 93005; J7120; J3490; J2270; J0696; J2405; Q9967

== ENCOUNTER 2022-11-09 19:12 | Emergency (ER) | payer OTHER ==
[~2022-11-09] VITALS: Ht 154.9 cm; Wt 63.0 kg
[~2022-11-09 19:12] MED LIST changes: +CEPH500T PO; +ONDA4TAB10 PO; +PANT20TA18 PO
[2022-11-09 20:00] LABS: SARS-CoV-2, RNA, NAAT POSITIVE SARS CoV-2 (NEGATIVE)
[2022-11-09] MEDS ORDERED: ACETAMINOPHEN 500 MG TABLET PO ONE (20:00)
[2022-11-09 20:04] LABS: RAPID GROUP A STREP negative (NEGATIVE)
[2022-11-09 20:08] LABS: CREATININE 0.7 mg/dL (0.5-1.5); POTASSIUM 4.2 mmol/L (3.5-5.1)
[2022-11-09 20:12] LABS: ALBUMIN 3.6 g/dL (3.5-5.0)
[2022-11-09 20:14] LABS: INFLUENZA TYPE A Negative For Type A (NEGATIVE); INFLUENZA TYPE B Negative For Type B (NEGATIVE)
[2022-11-09 20:14] LABS: INR 0.94 (0.85-1.15); PROTHROMBIN TIME 10.9 SEC (9.6-11.6)
[2022-11-09 20:43] LABS: BILIRUBIN,TOTAL 0.4 mg/dL (0.2-1.0); TOTAL PROTEIN, SERUM 8.1 g/dL (6.0-8.3)
[2022-11-09 20:58] VITALS: TEMP 100
[2022-11-09] MEDS ORDERED: IBUP-1493 PO (21:02)
[2022-11-09] MEDS ORDERED: PRED20TA3 PO (21:02)
[2022-11-09] MEDS ORDERED: ALBU90AE2 IH (21:02)
[2022-11-09] MEDS ORDERED: ONDA-104 PO (21:03)
[2022-11-09 21:07] VITALS: BP 134/76; PULSE 86; RESP 18; O2SAT 99
[2022-11-09 21:12] LABS: BASOPHILS # (AUTO) 0.05 K/uL (0.00-0.20); BASOPHILS % (AUTO) 0.6 % (0.0-5.0); EOSINOPHILS # (AUTO) 0.06 K/uL (0.00-0.70); EOSINOPHILS % (AUTO) 0.7 % (0.0-8.0); IMMATURE GRANULOCYTE ABSOLUTE 0.03 K/uL (0-1); LYMPHOCYTES # (AUTO) 2.3 K/uL (1.0-4.8); LYMPHOCYTES % (AUTO) 27.6 % (21.0-51.0); MEAN CORPUSCULAR HEMOGLOBIN 27.5 pg (27.0-33.0); MONOCYTES # (AUTO) 0.6 K/uL (0.1-1.0); MONOCYTES % (AUTO) 7.1 % (3.0-13.0); NEUTROPHILS # (AUTO) 5.3 K/uL (1.8-7.7); NEUTROPHILS % (AUTO) 63.6 % (40.0-77.0); PLATELET COUNT (AUTO) 297 K/uL (130-400); RED BLOOD CELL COUNT(AUTO) 4.32 MIL/uL (4.00-5.50); RED CELL DISTRIBUTION WIDTH 12.9 % (11.0-15.5); WHITE BLOOD COUNT (AUTO) 8.3 K/uL (4.8-10.8)
== END 2022-11-09 21:27 | disposition home or self-care (01) ==
LOC: EDH 19:12
DX: U07.1 COVID-19 (principal); I10 Essential (primary) hypertension; E11.9 Type 2 diabetes mellitus without complications; E78.00 Pure hypercholesterolemia, unspecified; Z79.84 Long term (current) use of oral hypoglycemic drugs; Z79.899 Other long term (current) drug therapy; Z98.890 Other specified postprocedural states
CPT/HCPCS: 99285; 71045; 87635; 84484; 80053; 83880; 85025; 85610; 87880; 87804 ×2; 36415; 93005; C9803

== ENCOUNTER 2022-12-26 13:01 | Emergency (ER) | payer OTHER ==
[~2022-12-26] VITALS: Ht 157.5 cm; Wt 60.3 kg
[~2022-12-26 13:01] MED LIST changes: +ALBU90AE2 IH; +ONDA-104 PO; +PRED20TA3 PO
[2022-12-26 13:52] LABS: HEMATOCRIT 35.9 % (36-48); MEAN CORPUSCULAR HEMOGLOBIN 27.6 pg (27.0-33.0); MEAN CORPUSCULAR VOLUME 81.2 fL (79-99); PLATELET COUNT (AUTO) 327 K/uL (130-400); RED BLOOD CELL COUNT(AUTO) 4.42 MIL/uL (4.00-5.50); RED CELL DISTRIBUTION WIDTH 12.7 % (11.0-15.5); WHITE BLOOD COUNT (AUTO) 13.3 K/uL (4.8-10.8)
[2022-12-26 14:08] LABS: ALBUMIN 3.5 g/dL (3.5-5.0); BILIRUBIN,TOTAL 0.3 mg/dL (0.2-1.0); CREATININE 0.7 mg/dL (0.5-1.5); POTASSIUM 4.3 mmol/L (3.5-5.1); TOTAL PROTEIN, SERUM 8.6 g/dL (6.0-8.3)
[2022-12-26 14:12] LABS: SARS-CoV-2, RNA, NAAT NEGATIVE SARS CoV-2 (NEGATIVE)
[2022-12-26 14:19] LABS: BAND NEUTROPHILS % (MANUAL) 4 % (0-2); BASOPHILS % (MANUAL) 1 % (0-2); LYMPHOCYTES % (MANUAL) 29 % (22-44); MAN.DIFF COMMENT-IMPRESSION MANUAL DIFFERENTIAL; MONOCYTES % (MANUAL) 2 % (2-9); PLATELET MORPHOLOGY COMMENT ADEQUATE; SEGMENTED NEUTROPHILS % 64 % (40-70); TOTAL CELLS COUNTED 100; WBC MORPHOLOGY CONSISTENT W/DIFF
[2022-12-26 14:19] LABS: INFLUENZA TYPE A Negative For Type A (NEGATIVE); INFLUENZA TYPE B Negative For Type B (NEGATIVE)
[2022-12-26] MEDS ORDERED: LACTATED RINGERS 1000ML 1,000 ML IV ONE (14:30)
[2022-12-26] MEDS ORDERED: ACETAMINOPHEN 500 MG TABLET PO ONE (16:30)
[2022-12-26] MEDS ORDERED: KETOROLAC 30MG VIAL (30MG/ML) IVP ONE (18:30)
[2022-12-26] MEDS ORDERED: IBUP-2070 PO (18:43)
[2022-12-26] MEDS ORDERED: CYCL10TA16 PO (18:43)
[2022-12-26 19:00] VITALS: BP 128/72; PULSE 72; RESP 18; O2SAT 98
[2022-12-26] MEDS ORDERED: CYCLOBENZAPRINE HCL 10 MG TABLET PO ONE (19:00)
== END 2022-12-26 19:16 | disposition home or self-care (01) ==
LOC: EDH 13:01
DX: M62.838 Other muscle spasm (principal); R51.9 Headache, unspecified; M54.2 Cervicalgia; I10 Essential (primary) hypertension; E11.9 Type 2 diabetes mellitus without complications; E78.00 Pure hypercholesterolemia, unspecified; M19.90 Unspecified osteoarthritis, unspecified site; Z20.822 Contact with and (suspected) exposure to COVID-19; Z79.84 Long term (current) use of oral hypoglycemic drugs; Z79.899 Other long term (current) drug therapy; Z98.890 Other specified postprocedural states; Z88.0 Allergy status to penicillin
CPT/HCPCS: 99285; 70450; 96374; 71045; 87635; 96361; 84484; 80053; 85025; 87804 ×2; 36415; 72125; 93005; C9803; J7030; J1885

== ENCOUNTER → 2023-01-04 | Outpatient (CLI) | payer OTHER ==
[~2023-01-04] MED LIST changes: +CYCL10TA16 PO; +IBUP-2070 PO
== END | disposition home or self-care (01) ==
LOC: RAH 12:52
PROVIDERS: ATTEND Family Medicine
DX: I70.203 Unspecified atherosclerosis of native arteries of extremities, bilateral legs (principal); M79.604 Pain in right leg; M79.605 Pain in left leg; R60.9 Edema, unspecified; R09.89 Other specified symptoms and signs involving the circulatory and respiratory systems; R33.9 Retention of urine, unspecified; K14.8 Other diseases of tongue; R25.9 Unspecified abnormal involuntary movements
CPT/HCPCS: 70450; 76857; 93880; 93925

== ENCOUNTER → 2023-01-13 | Outpatient (CLI) | payer OTHER | END | disposition home or self-care (01) | LOC: RAH 12:50 | PROVIDERS: ATTEND Family Medicine | DX: Z13.820 Encounter for screening for osteoporosis (principal); M85.88 Other specified disorders of bone density and structure, other site; M81.0 Age-related osteoporosis without current pathological fracture | CPT/HCPCS: 77080 ==

== ENCOUNTER → 2023-02-02 | Outpatient (CLI) | payer OTHER ==
[2023-02-02 09:33] LABS: ALBUMIN 3.2 g/dL (3.5-5.0); BILIRUBIN,TOTAL 0.3 mg/dL (0.2-1.0); POTASSIUM 4.6 mmol/L (3.5-5.1); TOTAL PROTEIN, SERUM 7.8 g/dL (6.0-8.3)
[2023-02-02 09:49] LABS: HEMOGLOBIN A1C 11.8 % (4.0-6.0)
[2023-02-02 09:53] LABS: BASOPHILS # (AUTO) 0.06 K/uL (0.00-0.20); BASOPHILS % (AUTO) 0.7 % (0.0-5.0); EOSINOPHILS # (AUTO) 0.18 K/uL (0.00-0.70); HEMATOCRIT 35.1 % (36-48); IMMATURE GRANULOCYTE ABSOLUTE 0.05 K/uL (0-1); LYMPHOCYTES # (AUTO) 3.2 K/uL (1.0-4.8); LYMPHOCYTES % (AUTO) 36.4 % (21.0-51.0); MEAN CORPUSCULAR HEMOGLOBIN 27.6 pg (27.0-33.0); MEAN CORPUSCULAR VOLUME 83.4 fL (79-99); MONOCYTES # (AUTO) 0.4 K/uL (0.1-1.0); MONOCYTES % (AUTO) 4.5 % (3.0-13.0); NEUTROPHILS # (AUTO) 4.9 K/uL (1.8-7.7); NEUTROPHILS % (AUTO) 55.8 % (40.0-77.0); PLATELET COUNT (AUTO) 288 K/uL (130-400); RED BLOOD CELL COUNT(AUTO) 4.21 MIL/uL (4.00-5.50); RED CELL DISTRIBUTION WIDTH 12.5 % (11.0-15.5); WHITE BLOOD COUNT (AUTO) 8.9 K/uL (4.8-10.8)
== END | disposition home or self-care (01) ==
LOC: LAB 08:30
PROVIDERS: ATTEND Family Medicine
DX: E11.69 Type 2 diabetes mellitus with other specified complication (principal); I10 Essential (primary) hypertension; E78.2 Mixed hyperlipidemia; D64.9 Anemia, unspecified; M25.50 Pain in unspecified joint
CPT/HCPCS: 36415; 80053; 83036; 85025

== ENCOUNTER → 2023-03-09 | Outpatient (CLI) | payer OTHER ==
[2023-03-09 12:25] LABS: ALBUMIN 3.3 g/dL (3.5-5.0); BILIRUBIN,TOTAL 0.4 mg/dL (0.2-1.0); CREATININE 0.6 mg/dL (0.5-1.5); POTASSIUM 4.2 mmol/L (3.5-5.1)
[2023-03-09 12:33] LABS: HEMOGLOBIN A1C 12.7 % (4.0-6.0)
== END | disposition home or self-care (01) ==
LOC: LAB 11:16
PROVIDERS: ATTEND Family Medicine
DX: I10 Essential (primary) hypertension (principal); E11.65 Type 2 diabetes mellitus with hyperglycemia; E11.42 Type 2 diabetes mellitus with diabetic polyneuropathy; E11.69 Type 2 diabetes mellitus with other specified complication
CPT/HCPCS: 36415; 80053; 83036

== ENCOUNTER → 2023-04-22 | Outpatient (CLI) | payer OTHER ==
[2023-04-22 09:49] LABS: AMPHET/METH SCREEN,URINE NEGATIVE (NEGATIVE); BARBITURATE SCREEN, URINE NEGATIVE (NEGATIVE); BENZODIAZEPINES SCREEN,URINE NEGATIVE (NEGATIVE); CANNABINOID SCREEN,URINE NEGATIVE (NEGATIVE); COCAINE SCREEN,URINE NEGATIVE (NEGATIVE); OPIATE SCREEN,URINE NEGATIVE (NEGATIVE); PHENCYCLIDINE SCREEN,URINE NEGATIVE (NEGATIVE)
== END | disposition home or self-care (01) ==
LOC: LAB 08:51
PROVIDERS: ATTEND Family Medicine
DX: Z79.899 Other long term (current) drug therapy (principal)
CPT/HCPCS: 80305

== ENCOUNTER 2023-06-18 23:24 | Emergency (ER) | payer OTHER ==
[~2023-06-18] VITALS: Ht 157.5 cm; Wt 61.2 kg
[2023-06-18 23:45] LABS: RAPID GROUP A STREP negative (NEGATIVE)
[2023-06-18 23:49] LABS: BASOPHILS # (AUTO) 0.06 K/uL (0.00-0.20); BASOPHILS % (AUTO) 0.5 % (0.0-5.0); EOSINOPHILS % (AUTO) 0.9 % (0.0-8.0); HEMATOCRIT 35.8 % (36-48); IMMATURE GRANULOCYTE ABSOLUTE 0.04 K/uL (0-1); LYMPHOCYTES # (AUTO) 3.1 K/uL (1.0-4.8); LYMPHOCYTES % (AUTO) 27.9 % (21.0-51.0); MEAN CORPUSCULAR HEMOGLOBIN 28.1 pg (27.0-33.0); MEAN CORPUSCULAR HGB CONC 34.4 g/dL (32.0-36.0); MEAN CORPUSCULAR VOLUME 81.7 fL (79-99); MONOCYTES # (AUTO) 0.5 K/uL (0.1-1.0); MONOCYTES % (AUTO) 4.4 % (3.0-13.0); NEUTROPHILS # (AUTO) 7.3 K/uL (1.8-7.7); NEUTROPHILS % (AUTO) 65.9 % (40.0-77.0); PLATELET COUNT (AUTO) 279 K/uL (130-400); RED BLOOD CELL COUNT(AUTO) 4.38 MIL/uL (4.00-5.50); RED CELL DISTRIBUTION WIDTH 12.8 % (11.0-15.5)
[2023-06-18 23:49] LABS: SARS-CoV-2, RNA, NAAT NEGATIVE SARS CoV-2 (NEGATIVE)
[2023-06-18 23:54] LABS: INFLUENZA TYPE A Negative For Type A (NEGATIVE); INFLUENZA TYPE B Negative For Type B (NEGATIVE)
[2023-06-19] MEDS: METOCLOPRAMIDE 10 MG/2 ML VIAL IVP ONE (00:02)
[2023-06-19 00:36] LABS: APPEARANCE,URINE CLOUDY (CLEAR); BILIRUBIN,URINE NEGATIVE (NEGATIVE); COLOR,URINE LIGHT-YELLOW (YELLOW); GLUCOSE, URINE (UA) 70 mg/dL (NEGATIVE); KETONES,URINE NEGATIVE (NEGATIVE); LEUKOCYTE ESTERASE ,URINE 250 Leu/uL (NEGATIVE); NITRATE,URINE NEGATIVE (NEGATIVE); PROTEIN,URINE 10 mg/dL (NEGATIVE); UROBILINOGEN,URINE 0.2 mg/dL (0.2-1.0)
[2023-06-19 00:39] LABS: ADD UA MICROSCOPIC YES
[2023-06-19 00:41] LABS: BACTERIA,URINE MANY /HPF (None Seen); MUCUS,URINE RARE LPF (None Seen); SQUAMOUS EPITHELIAL CELL,UR FEW /HPF (0-2); WBC,URINE 26-50 /HPF (0-1)
[2023-06-19 01:02] LABS: CREATININE 0.7 mg/dL (0.5-1.0); POTASSIUM 4.2 mmol/L (3.5-5.1)
[2023-06-19 01:06] LABS: ALBUMIN 3.2 g/dL (3.5-5.0); BILIRUBIN,TOTAL 0.3 mg/dL (0.2-1.0); TOTAL PROTEIN, SERUM 7.7 g/dL (6.0-8.3)
[2023-06-19] MEDS ORDERED: PHEN-847 PO (01:08)
[2023-06-19] MEDS ORDERED: MACR100 PO (01:08)
[2023-06-19] MEDS: NITROFURANTOIN MONOHYD/M-CRYST 100 MG CAPSULE PO ONE (01:10)
[2023-06-19 01:23] VITALS: BP 142/78; PULSE 78; RESP 16; O2SAT 98
== END 2023-06-19 01:24 | disposition home or self-care (01) ==
LOC: EDH 23:24
DX: N39.0 Urinary tract infection, site not specified (principal); I10 Essential (primary) hypertension; E11.9 Type 2 diabetes mellitus without complications; E78.00 Pure hypercholesterolemia, unspecified; M19.90 Unspecified osteoarthritis, unspecified site; Z20.822 Contact with and (suspected) exposure to COVID-19; Z79.84 Long term (current) use of oral hypoglycemic drugs; Z79.899 Other long term (current) drug therapy; Z98.51 Tubal ligation status; Z98.890 Other specified postprocedural states; Z88.0 Allergy status to penicillin
CPT/HCPCS: 99284; 87635; 84484; 80053; 83690; 85025; 87077; 87088; 87186; 87880; 87804 ×2; 81001; 36415 ×2; 93005; 96374; J2765

== ENCOUNTER → 2023-10-12 | Outpatient (CLI) | payer OTHER ==
[~2023-10-12] MED LIST changes: -ALBU90AE2 IH; +ALBU90AE3 IH; +MACR100 PO; +ONDA-243 PO; -ONDA4TAB10 PO; +PHEN-847 PO
[2023-10-12 10:53] LABS: BASOPHILS # (AUTO) 0.06 K/uL (0.00-0.20); BASOPHILS % (AUTO) 0.5 % (0.0-5.0); EOSINOPHILS # (AUTO) 0.11 K/uL (0.00-0.70); IMMATURE GRANULOCYTE ABSOLUTE 0.05 K/uL (0-1); LYMPHOCYTES # (AUTO) 2.6 K/uL (1.0-4.8); MEAN CORPUSCULAR HEMOGLOBIN 27.4 pg (27.0-33.0); MEAN CORPUSCULAR HGB CONC 33.2 g/dL (32.0-36.0); MEAN CORPUSCULAR VOLUME 82.3 fL (79-99); MONOCYTES # (AUTO) 0.6 K/uL (0.1-1.0); MONOCYTES % (AUTO) 5.1 % (3.0-13.0); NEUTROPHILS # (AUTO) 7.6 K/uL (1.8-7.7); NEUTROPHILS % (AUTO) 68.9 % (40.0-77.0); PLATELET COUNT (AUTO) 335 K/uL (130-400); RED BLOOD CELL COUNT(AUTO) 4.13 MIL/uL (4.00-5.50); RED CELL DISTRIBUTION WIDTH 12.3 % (11.0-15.5)
[2023-10-12 11:14] LABS: ALBUMIN 3.1 g/dL (3.5-5.0); BILIRUBIN,TOTAL 0.4 mg/dL (0.2-1.0); CREATININE 0.6 mg/dL (0.5-1.0); POTASSIUM 4.4 mmol/L (3.5-5.1); TOTAL PROTEIN, SERUM 7.8 g/dL (6.0-8.3)
[2023-10-12 11:15] LABS: APPEARANCE,URINE TURBID (CLEAR); BILIRUBIN,URINE NEGATIVE (NEGATIVE); COLOR,URINE YELLOW (YELLOW); GLUCOSE, URINE (UA) >=1000 mg/dL (NEGATIVE); KETONES,URINE NEGATIVE (NEGATIVE); LEUKOCYTE ESTERASE ,URINE 500 Leu/uL (NEGATIVE); NITRATE,URINE 2+ (NEGATIVE); OCCULT BLOOD,URINE SMALL (NEGATIVE); PH,URINE 5.5 (5.0-8.0); PROTEIN,URINE 50 mg/dL (NEGATIVE); UROBILINOGEN,URINE 0.2 mg/dL (0.2-1.0)
[2023-10-12 11:26] LABS: ADD UA MICROSCOPIC YES
[2023-10-12 11:30] LABS: BACTERIA,URINE MANY /HPF (None Seen); MUCUS,URINE FEW LPF (None Seen); SQUAMOUS EPITHELIAL CELL,UR MANY /HPF (0-2); WBC CLUMP MANY /HPF (0-1); WBC,URINE TNTC /HPF (0-1)
== END | disposition home or self-care (01) ==
LOC: RAH 10:11
PROVIDERS: ATTEND Family Medicine
DX: M79.604 Pain in right leg (principal); M79.89 Other specified soft tissue disorders; I10 Essential (primary) hypertension; E11.65 Type 2 diabetes mellitus with hyperglycemia; E11.42 Type 2 diabetes mellitus with diabetic polyneuropathy; E11.69 Type 2 diabetes mellitus with other specified complication; D64.9 Anemia, unspecified; E78.2 Mixed hyperlipidemia
CPT/HCPCS: 36415; 73610; 80053; 80061; 81001; 82043; 82570; 83036; 85025; 87086; 87186; 93971

== ENCOUNTER → 2023-11-17 | Outpatient (CLI) | payer OTHER ==
[2023-11-17 09:55] LABS: BASOPHILS # (AUTO) 0.06 K/uL (0.00-0.20); BASOPHILS % (AUTO) 0.6 % (0.0-5.0); EOSINOPHILS # (AUTO) 0.09 K/uL (0.00-0.70); EOSINOPHILS % (AUTO) 0.9 % (0.0-8.0); IMMATURE GRANULOCYTE ABSOLUTE 0.06 K/uL (0-1); LYMPHOCYTES # (AUTO) 3.2 K/uL (1.0-4.8); LYMPHOCYTES % (AUTO) 31.5 % (21.0-51.0); MEAN CORPUSCULAR HGB CONC 32.1 g/dL (32.0-36.0); MEAN CORPUSCULAR VOLUME 84.2 fL (79-99); MONOCYTES # (AUTO) 0.4 K/uL (0.1-1.0); MONOCYTES % (AUTO) 4.3 % (3.0-13.0); NEUTROPHILS # (AUTO) 6.2 K/uL (1.8-7.7); NEUTROPHILS % (AUTO) 62.1 % (40.0-77.0); PLATELET COUNT (AUTO) 316 K/uL (130-400); RED BLOOD CELL COUNT(AUTO) 3.92 MIL/uL (4.00-5.50); RED CELL DISTRIBUTION WIDTH 12.7 % (11.0-15.5)
[2023-11-17 10:05] LABS: ALBUMIN 3.1 g/dL (3.5-5.0); BILIRUBIN,TOTAL 0.3 mg/dL (0.2-1.0); CREATININE 0.9 mg/dL (0.5-1.0); HEMOGLOBIN A1C 12.8 % (4.0-6.0); POTASSIUM 4.8 mmol/L (3.5-5.1); TOTAL PROTEIN, SERUM 7.7 g/dL (6.0-8.3)
== END | disposition home or self-care (01) ==
LOC: LAB 09:15
PROVIDERS: ATTEND Family Medicine
DX: D72.829 Elevated white blood cell count, unspecified (principal); R31.9 Hematuria, unspecified; N39.0 Urinary tract infection, site not specified; E11.65 Type 2 diabetes mellitus with hyperglycemia
CPT/HCPCS: 36415; 80053; 82043; 82570; 83036; 85025

== ENCOUNTER 2024-01-01 15:42 | Emergency (ER) | payer OTHER ==
[~2024-01-01] VITALS: Ht 154.9 cm; Wt 68.0 kg
[~2024-01-01 15:42] MED LIST changes: +NAPR-1505 PO; -NAPR375T6 PO
[2024-01-01 16:41] LABS: BASOPHILS # (AUTO) 0.06 K/uL (0.00-0.20); BASOPHILS % (AUTO) 0.6 % (0.0-5.0); EOSINOPHILS # (AUTO) 0.07 K/uL (0.00-0.70); EOSINOPHILS % (AUTO) 0.7 % (0.0-8.0); IMMATURE GRANULOCYTE ABSOLUTE 0.04 K/uL (0-1); LYMPHOCYTES # (AUTO) 2.2 K/uL (1.0-4.8); LYMPHOCYTES % (AUTO) 20.5 % (21.0-51.0); MEAN CORPUSCULAR HEMOGLOBIN 27.9 pg (27.0-33.0); MEAN CORPUSCULAR HGB CONC 33.5 g/dL (32.0-36.0); MEAN CORPUSCULAR VOLUME 83.1 fL (79-99); MONOCYTES # (AUTO) 0.5 K/uL (0.1-1.0); MONOCYTES % (AUTO) 4.9 % (3.0-13.0); NEUTROPHILS # (AUTO) 7.8 K/uL (1.8-7.7); NEUTROPHILS % (AUTO) 72.9 % (40.0-77.0); PLATELET COUNT (AUTO) 281 K/uL (130-400); RED BLOOD CELL COUNT(AUTO) 4.09 MIL/uL (4.00-5.50); RED CELL DISTRIBUTION WIDTH 12.7 % (11.0-15.5); WHITE BLOOD COUNT (AUTO) 10.7 K/uL (4.8-10.8)
[2024-01-01] MEDS: dexaMETHasone SOD PHOSPHATE 4 MG/ML 1ML VIAL IVP ONE (16:44)
[2024-01-01] MEDS: ketOROlac 15MG/ML VIAL (15MG/ML) IV ONE (16:44)
[2024-01-01 16:52] LABS: CREATININE 0.9 mg/dL (0.5-1.0); POTASSIUM 4.3 mmol/L (3.5-5.1)
[2024-01-01] MEDS: ondanSETRON 4MG INJ IVP ONE (17:39)
[2024-01-01] MEDS: hydrALAZine 20MG/ML VIAL IV ONE (17:40)
[2024-01-01] MEDS: 0.9%NACL 1000ML 1,000 ML IV ONE (17:40)
[2024-01-01] MEDS: morPHINE 2 MG SYG IVP ONE ×2 (17:41→20:05)
[2024-01-01] MEDS: INSULIN humuLIN R 100 UNIT/ML 3ML IV ONE (17:42)
[2024-01-01 17:45] LABS: ERYTHROCYTE SEDIMENTATION RATE 88 MM/HR (0-30)
[2024-01-01] MEDS ORDERED: KETO10TA2 PO (19:18)
[2024-01-01 19:37] VITALS: BP 161/72; PULSE 81; RESP 18; TEMP 97.9; O2SAT 96
== END 2024-01-01 20:36 | disposition home or self-care (01) ==
LOC: EDH 15:42
DX: M06.4 Inflammatory polyarthropathy (principal); E11.65 Type 2 diabetes mellitus with hyperglycemia; E78.00 Pure hypercholesterolemia, unspecified; I10 Essential (primary) hypertension; Z79.1 Long term (current) use of non-steroidal anti-inflammatories (NSAID); Z79.4 Long term (current) use of insulin; Z79.84 Long term (current) use of oral hypoglycemic drugs; Z79.85 Long-term (current) use of injectable non-insulin antidiabetic drugs; Z79.899 Other long term (current) drug therapy; Z88.0 Allergy status to penicillin; Z98.890 Other specified postprocedural states
CPT/HCPCS: 99285; 96375; 96374; 93971; 96361; 80048; 85025; 85651; 82948; 86140; 36415; 73130; 96376; J1815; J1100; J2270 ×2; J7030; J0360; J2405; J1885

== ENCOUNTER 2024-01-12 01:12 | Emergency (ER) | payer OTHER ==
[~2024-01-12] VITALS: Ht 154.9 cm; Wt 67.1 kg
[~2024-01-12 01:12] MED LIST changes: +KETO10TA2 PO
[2024-01-12 01:59] VITALS: TEMP 98.8
[2024-01-12 01:59] LABS: BASOPHILS # (AUTO) 0.06 K/uL (0.00-0.20); BASOPHILS % (AUTO) 0.4 % (0.0-5.0); EOSINOPHILS # (AUTO) 0.08 K/uL (0.00-0.70); EOSINOPHILS % (AUTO) 0.5 % (0.0-8.0); HEMATOCRIT 34.7 % (36-48); IMMATURE GRANULOCYTE ABSOLUTE 0.06 K/uL (0-1); LYMPHOCYTES # (AUTO) 2.1 K/uL (1.0-4.8); LYMPHOCYTES % (AUTO) 12.7 % (21.0-51.0); MEAN CORPUSCULAR HEMOGLOBIN 27.6 pg (27.0-33.0); MEAN CORPUSCULAR HGB CONC 33.4 g/dL (32.0-36.0); MEAN CORPUSCULAR VOLUME 82.6 fL (79-99); MONOCYTES # (AUTO) 0.7 K/uL (0.1-1.0); MONOCYTES % (AUTO) 4.2 % (3.0-13.0); NEUTROPHILS # (AUTO) 13.8 K/uL (1.8-7.7); NEUTROPHILS % (AUTO) 81.8 % (40.0-77.0); PLATELET COUNT (AUTO) 302 K/uL (130-400); RED CELL DISTRIBUTION WIDTH 12.4 % (11.0-15.5); WHITE BLOOD COUNT (AUTO) 16.8 K/uL (4.8-10.8)
[2024-01-12 02:06] LABS: CREATININE 0.8 mg/dL (0.5-1.0); POTASSIUM 4.8 mmol/L (3.5-5.1)
[2024-01-12 02:07] LABS: RAPID GROUP A STREP negative (NEGATIVE)
[2024-01-12 02:13] LABS: SARS-CoV-2, RNA, NAAT NEGATIVE SARS CoV-2 (NEGATIVE)
[2024-01-12 02:18] LABS: INFLUENZA TYPE A Negative For Type A (NEGATIVE); INFLUENZA TYPE B Negative For Type B (NEGATIVE)
[2024-01-12] MEDS: Solu-medROL 125MG VIAL IVP ONE (02:24)
[2024-01-12] MEDS: INSULIN humuLIN R 100 UNIT/ML 3ML SQ ONE (02:25)
[2024-01-12] MEDS: 0.9% NACL 500ML IV.SOLN 500 ML IV ONE (02:26)
[2024-01-12] MEDS ORDERED: AZIT250T9 PO (04:26)
[2024-01-12] MEDS ORDERED: ALBU90AE IH (04:26)
[2024-01-12] MEDS: INSULIN humuLIN R 100 UNIT/ML 3ML IV ONE (04:39)
[2024-01-12] MEDS: AZITHROMYCIN 250 MG TABLET PO ONE (04:39)
[2024-01-12 05:31] LABS: ADD UA MICROSCOPIC YES; APPEARANCE,URINE CLEAR (CLEAR); BILIRUBIN,URINE NEGATIVE (NEGATIVE); COLOR,URINE LIGHT-YELLOW (YELLOW); GLUCOSE, URINE (UA) >=1000 mg/dL (NEGATIVE); KETONES,URINE NEGATIVE (NEGATIVE); LEUKOCYTE ESTERASE ,URINE NEGATIVE Leu/uL (NEGATIVE); NITRATE,URINE 2+ (NEGATIVE); OCCULT BLOOD,URINE NEGATIVE (NEGATIVE); PROTEIN,URINE NEGATIVE (NEGATIVE); UROBILINOGEN,URINE 0.2 mg/dL (0.2-1.0)
[2024-01-12 05:38] LABS: BACTERIA,URINE FEW /HPF (None Seen); MUCUS,URINE RARE LPF (None Seen); RBC,URINE 0-1 /HPF (0-1); SQUAMOUS EPITHELIAL CELL,UR FEW /HPF (0-2)
[2024-01-12 06:35] VITALS: BP 138/61; PULSE 83; RESP 22; O2SAT 99
== END 2024-01-12 07:05 | disposition home or self-care (01) ==
LOC: EDH 01:12
DX: J20.9 Acute bronchitis, unspecified (principal); Z20.822 Contact with and (suspected) exposure to COVID-19; E11.65 Type 2 diabetes mellitus with hyperglycemia; E86.0 Dehydration; M19.90 Unspecified osteoarthritis, unspecified site; E78.00 Pure hypercholesterolemia, unspecified; I10 Essential (primary) hypertension; F17.200 Nicotine dependence, unspecified, uncomplicated; Z88.0 Allergy status to penicillin; Z79.4 Long term (current) use of insulin; Z79.899 Other long term (current) drug therapy; Z90.710 Acquired absence of both cervix and uterus; Z98.890 Other specified postprocedural states
CPT/HCPCS: 99285; 96374; 96361; 71045; 87635; 96375; 80048; 85025; 87086 ×2; 87186; 87880; 87804 ×2; 82948 ×2; 81001; 36415; 96372; J1815 ×2; J7040; J2919

== ENCOUNTER → 2024-01-26 | Outpatient (CLI) | payer OTHER ==
[~2024-01-26] MED LIST changes: +ALBU90AE IH; +AZIT250T9 PO
== END | disposition home or self-care (01) ==
LOC: RAH 07:56
PROVIDERS: ATTEND Internal Medicine
DX: M19.012 Primary osteoarthritis, left shoulder (principal); M25.811 Other specified joint disorders, right shoulder; M25.511 Pain in right shoulder; M25.512 Pain in left shoulder; M54.2 Cervicalgia; M79.641 Pain in right hand; M79.642 Pain in left hand; M54.16 Radiculopathy, lumbar region
CPT/HCPCS: 72040; 72100; 73030; 73130

== ENCOUNTER 2024-03-16 23:23 | Emergency (ER) | payer OTHER ==
[~2024-03-16] VITALS: Ht 154.9 cm; Wt 67.1 kg
--- NOTE | 2024-03-16 23:28 | NUR ---
COVID, FLU AND STREP SWABS COLLECTED AND SENT [facility] PROVIDED
[2024-03-16 23:44] LABS: RAPID GROUP A STREP negative (NEGATIVE)
[2024-03-16 23:50] LABS: SARS-CoV-2, RNA, NAAT NEGATIVE SARS CoV-2 (NEGATIVE)
[2024-03-16 23:55] LABS: INFLUENZA TYPE A Negative For Type A (NEGATIVE); INFLUENZA TYPE B Negative For Type B (NEGATIVE)
[2024-03-17 00:07] LABS: BASOPHILS # (AUTO) 0.06 K/uL (0.00-0.20); BASOPHILS % (AUTO) 0.7 % (0.0-5.0); EOSINOPHILS # (AUTO) 0.13 K/uL (0.00-0.70); EOSINOPHILS % (AUTO) 1.4 % (0.0-8.0); HEMATOCRIT 36.4 % (36-48); IMMATURE GRANULOCYTE ABSOLUTE 0.05 K/uL (0-1); LYMPHOCYTES # (AUTO) 2.2 K/uL (1.0-4.8); MEAN CORPUSCULAR HEMOGLOBIN 27.6 pg (27.0-33.0); MEAN CORPUSCULAR HGB CONC 33.5 g/dL (32.0-36.0); MEAN CORPUSCULAR VOLUME 82.4 fL (79-99); MONOCYTES # (AUTO) 0.6 K/uL (0.1-1.0); MONOCYTES % (AUTO) 6.1 % (3.0-13.0); NEUTROPHILS # (AUTO) 6.1 K/uL (1.8-7.7); NEUTROPHILS % (AUTO) 67.3 % (40.0-77.0); PLATELET COUNT (AUTO) 352 K/uL (130-400); RED BLOOD CELL COUNT(AUTO) 4.42 MIL/uL (4.00-5.50); RED CELL DISTRIBUTION WIDTH 11.9 % (11.0-15.5); WHITE BLOOD COUNT (AUTO) 9.1 K/uL (4.8-10.8)
[2024-03-17] MEDS: ondanSETRON 4MG INJ IVP STA (00:10)
[2024-03-17] MEDS: 0.9%NACL 1000ML 1,000 ML IV STA (00:10)
[2024-03-17] MEDS: BENZONATATE 100 MG CAPSULE PO STA (00:10)
[2024-03-17 00:19] LABS: CREATININE 0.8 mg/dL (0.5-1.0); POTASSIUM 4.2 mmol/L (3.5-5.1)
[2024-03-17 00:21] LABS: APPEARANCE,URINE CLEAR (CLEAR); BACTERIA,URINE MANY /HPF (None Seen); BILIRUBIN,URINE NEGATIVE (NEGATIVE); COLOR,URINE LIGHT-YELLOW (YELLOW); GLUCOSE, URINE (UA) >=1000 mg/dL (NEGATIVE); KETONES,URINE NEGATIVE (NEGATIVE); LEUKOCYTE ESTERASE ,URINE NEGATIVE Leu/uL (NEGATIVE); MUCUS,URINE RARE LPF (None Seen); NITRATE,URINE NEGATIVE (NEGATIVE); OCCULT BLOOD,URINE NEGATIVE (NEGATIVE); PH,URINE 5.5 (5.0-8.0); PROTEIN,URINE 30 mg/dL (NEGATIVE); SQUAMOUS EPITHELIAL CELL,UR RARE /HPF (0-2); UROBILINOGEN,URINE 0.2 mg/dL (0.2-1.0); YEAST,URINE BUDDING RARE /HPF (None Seen)
[2024-03-17 00:23] LABS: ALBUMIN 3.3 g/dL (3.5-5.0); BILIRUBIN,TOTAL 0.5 mg/dL (0.2-1.0); TOTAL PROTEIN, SERUM 8.4 g/dL (6.0-8.3)
[2024-03-17] MEDS: INSULIN humuLIN R 100 UNIT/ML 3ML IV STA (01:29)
[2024-03-17 02:10] VITALS: BP 140/67; PULSE 86; RESP 16; TEMP 98.5; O2SAT 97
--- NOTE | 2024-03-17 02:44 | ERN ---
ED Note History of Present Illness Stated Complaint: COUGH, N/V Chief Complaint: Multiple Complaints Time Seen by MD: 23:35 Time Seen by Midlevel: 23:40 Dictation: 58-year-old female with a history of hypertension, cholesterol, diabetes. coming in with complaints of coughing, throat pain and congestion with vomiting onset this morning along with dysuria. Allergies: Coded Allergies: Penicillins (Unverified Allergy, Mild, HIVES / RASH, 03/01/19) Home Meds Active Scripts Albuterol Sulfate (Proair Respiclick) 90 Mcg Aer.pow.ba, 2 PUFF IH Q4HPRN PRN for shortness of breath, #1 EACH 0 Refills Prov:KATINA BULLOCK MD 01/12/24 Azithromycin (Azithromycin) 250 Mg Tablet, 1 TAB PO AD for 5 Days, #6 TAB 0 Refills 2 the first day followed by 1 for days 2-5 Prov:KATINA BULLOCK MD 01/12/24 Ketorolac Tromethamine (Ketorolac Tromethamine) 10 Mg Tablet, 10 MG PO BID for 5 Days, #10 TAB Prov:RAMANDEEP MARY 01/01/24 Phenazopyridine HCl (Pyridium) 200 Mg Tab, 200 MG PO TIDPC, #6 TAB 0 Refills TAKE WITH FOOD TO PREVENT STOMACH UPSET. Prov:FATEMEH GLOVER Sr., MD 06/19/23 Nitrofurantoin/Nitrofuran Mac (Macrobid) 100 Mg Cap, 1 CAP PO BID for 7 Days, #14 CAP 0 Refills Prov:FATEMEH GLOVER Sr., MD 06/19/23 Cyclobenzaprine HCl (Flexeril) 10 Mg Tab, 10 MG PO TID for muscle spasm, #20 TAB 0 Refills Prov:CARYL ACOSTA MD 12/26/22 Ibuprofen (Ibuprofen) 600 Mg Tablet, 600 MG PO Q6H PRN for PAIN, #20 TAB Prov:CARYL ACOSTA MD 12/26/22 Ondansetron HCl (Ondansetron HCl) 4 Mg Tablet, 4 MG PO TIDP PRN for VOMITING, #20 TAB Prov:CASEY LARIOS MD 11/09/22 Albuterol Sulfate (Proair Digihaler) 90 Mcg Aer.pw.bas, 2 PUFF IH QID, #1 UNIT Prov:CASEY LARIOS MD 11/09/22 Prednisone (Prednisone) 20 Mg Tablet, 1 TAB PO AD for 6 Days, #14 TAB 0 Refills TAKE 3 TAB BY MOUTH daily X3 DAYS, THEN TAKE 2 TAB BY MOUTH daily X2 DAYS, THEN TAKE 1 TAB BY MOUTH ONCE A DAY X1 DAY. Prov:CASEY LARIOS MD 11/09/22 Ibuprofen (Motrin/Advil) 800 Mg Tab, 800 MG PO TID, #30 TAB Prov:CASEY LARIOS MD 11/09/22 Ondansetron (Ondansetron Odt) 4 Mg Tab.rapdis, 4 MG PO Q6HPRN PRN for nausea, #12 TAB 0 Refills Prov:CARYL ACOSTA MD 11/02/22 Pantoprazole Sodium (Pantoprazole Sodium) 20 Mg Tablet.dr, 20 MG PO DAILY, #30 TAB Prov:CARYL ACOSTA MD 11/02/22 Cephalexin (Cephalexin) 500 Mg Tablet, 500 MG PO BID for 4 Days, #8 TAB Start on 11/03/2022 Prov:CARYL ACOSTA MD 11/02/22 Ibuprofen (Motrin/Advil) 800 Mg Tab, 800 MG PO TID, #30 TAB Prov:CASEY LARIOS MD 05/10/22 Naproxen (Naproxen) 375 Mg Tablet.dr, 375 MG PO BID for 7 Days, #14 TAB Prov:LINDA CLARK MD 05/08/22 Reported Medications Losartan/Hydrochlorothiazide (Losartan-Hctz 50-12.5 mg Tab) 1 Each Tablet, 1 EACH PO DAILY, TAB 05/11/22 Empagliflozin/Metformin HCl (Synjardy 12.5-1,000 mg Tablet) 1 Each Tablet, 1 EACH PO DAILY, TAB 05/11/22 Gabapentin (Neurontin) 300 Mg Capsule, 300 MG PO TID, CAP 05/11/22 Insulin Degludec (Tresiba Flextouch U-100) 100 Unit/1 Ml Insuln.pen, 45 UNIT SQ DAILY, SYRINGE 05/11/22 Glimepiride (Glimepiride) 4 Mg Tablet, 4 MG PO BID, TAB 05/11/22 Metformin HCl (Metformin HCl) 1,000 Mg Tablet, 1000 MG PO BID, TAB 05/02/20 Dulaglutide (Trulicity) 1.5 Mg/0.5 Ml Pen.injctr, 1.5 MG SQ weekly 03/02/19 Past Medical History Past Medical History: Arthritis, Diabetes-Type II, High Cholesterol, Hypertension, Other Additional Past Medical Hx: GASTRITIS Surgical History: Hysterectomy, Surgical History Other: HERNIA REPAIR Social History: Smokers, Lives with family, Other History: Not Applicable Review of System Dictation Constitutional: Negative for fever,chills, and weight loss Eyes: Negative for injury, pain,redness, and discharge ENT: Negative for injury,pain or swelling Cardiovascular: Negative for chest pain, palpitations, and edema Respiratory: Patient complaining of cough, no respiratory distress, no wheezing or rales Abdomen/GI: Negative for abdominal pain, nausea, vomiting, diarrhea, and constipation Back: Negative for injury and pain : Negative for injury, bleeding and discharge MS/Extremity: Negative for injury and deformity Skin: Negative for rash, and discoloration Neuro: Negative for headache, weakness, numbness, tingling, and seizure Psych: Negative for suicide ideation, homicidal ideation, and hallucinations Review of Systems: was completed Initial Vital Sign VS Vital Signs Date Time Temp Pulse Resp B/P (MAP) Pulse Ox O2 Delivery O2 Flow Rate FiO2 03/16/24 23:24 97.9 101 18 164/76 99 Room Air 03/17/24 00:03 0 21 Physical Exam Dictation General: awake, alert, NAD Head/Face: Normocephalic, atraumatic Eyes: PERRL, EOMI, vision at baseline ENT: oral cavity clear, TMs clear, no signs of infection Neck: Trachea midline, supple, no nuchal rigidity Cardiovascular: RRR, normal S1/S2, No MRGs, no JVD Respiratory: CTAB, no respiratory distress, No rales or wheezes Abdomen: Soft, non-tender, non-distended, normal bowel sounds, no guarding or rebound. Skin: Warm, dry, normal turgor, no rash MS/Extremity: Pulses equal, no cyanosis, neurovascular intact, FROM Neuro: COAx4, GCS 15, strength 5/5, CN 2-12 intact, normal cerebellar exam, normal gait, Psych: Normal behavior, mood, and affect normal Results (Laboratory/Radiology) Laboratory/Radiology Laboratory Tests Test 03/16/24 23:28 03/17/24 00:00 03/17/24 00:01 03/17/24 01:17 Influenza Type A Antigen Negative For Type A Influenza Type B Antigen Negative For Type B SARS-CoV-2, RNA, NAAT NEGATIVE SARS CoV-2 Group A Streptococcus Rapid negative (NEGATIVE) White Blood Count 9.1 K/uL (4.8-10.8) Red Blood Count 4.42 MIL/uL (4.00-5.50) Hemoglobin 12.2 g/dL (12.0-16.0) Hematocrit 36.4 % (36-48) Mean Corpuscular Volume 82.4 fL (79-99) Mean Corpuscular Hemoglobin 27.6 pg (27.0-33.0) Mean Corpuscular Hemoglobin Concent 33.5 g/dL (32.0-36.0) Red Cell Distribution Width 11.9 % (11.0-15.5) Platelet Count 352 K/uL (130-400) Mean Platelet Volume 9.4 fL (7.5-10.5) Immature Granulocyte % (Auto) 0.5 % (0-1) Neutrophils (%) (Auto) 67.3 % (40.0-77.0) Lymphocytes (%) (Auto) 24.0 % (21.0-51.0) Monocytes (%) (Auto) 6.1 % (3.0-13.0) Eosinophils (%) (Auto) 1.4 % (0.0-8.0) Basophils (%) (Auto) 0.7 % (0.0-5.0) Neutrophils # (Auto) 6.1 K/uL (1.8-7.7) Lymphocytes # (Auto) 2.2 K/uL (1.0-4.8) Monocytes # (Auto) 0.6 K/uL (0.1-1.0) Eosinophils # (Auto) 0.13 K/uL (0.00-0.70) Basophils # (Auto) 0.06 K/uL (0.00-0.20) Absolute Immature Granulocyte (auto 0.05 K/uL (0-1) Nucleated Red Blood Cells 0.0 % (0.0-0.19) Sodium Level 132 mmol/L (136-145) L Potassium Level 4.2 mmol/L (3.5-5.1) Chloride Level 97 mmol/L (101-111) L Carbon Dioxide Level 31 mmol/L (21-32) Blood Urea Nitrogen 14 mg/dL (7-18) Creatinine 0.8 mg/dL (0.5-1.0) Glomerular Filtration Rate Calc 85 mL/min (>90) Random Glucose 377 mg/dL (70-105) H Total Calcium 9.2 mg/dL (8.5-10.1) Total Bilirubin 0.5 mg/dL (0.2-1.0) Aspartate Amino Transf (AST/SGOT) 16 U/L (10-37) Alanine Aminotransferase (ALT/SGPT) 23 U/L (12-78) Alkaline Phosphatase 179 U/L (50-136) H Total Protein 8.4 g/dL (6.0-8.3) H Albumin 3.3 g/dL (3.5-5.0) L Lipase 45 U/L (16-77) Urine Color LIGHT-YELLOW (YELLOW) Urine Appearance CLEAR (CLEAR) Urine pH 5.5 (5.0-8.0) Urine Specific Whitmer 1.018 (1.001-1.031) Urine Protein 30 mg/dL (NEGATIVE) H Urine Glucose (UA) >=1000 mg/dL (NEGATIVE) H Urine Ketones NEGATIVE mg/dL (NEGATIVE) Urine Occult Blood NEGATIVE (NEGATIVE) Urine Nitrate NEGATIVE (NEGATIVE) Urine Bilirubin NEGATIVE mg/dL (NEGATIVE) Urine Urobilinogen 0.2 mg/dL (0.2-1.0) Urine Leukocyte Esterase NEGATIVE Lucie/uL Urine RBC 2-5 /HPF (0-1) H Urine WBC 2-5 /HPF (0-1) H Urine Squamous Epithelial Cells RARE /HPF (0-2) Urine Bacteria MANY /HPF (None Seen) Urine Yeast RARE /HPF (None Seen) Whole Blood Glucose 343 MG/DL (70-110) H Labs Reviewed?: Yes EKG Comment: Date:03/17/24 Time:101 Ventricular rate:87 NH interval:168 QRS duration:25 QT/QTc:343/412 EKG interpretation: Sinus rhythm Reviewed by ED Attending no STEMI interpreted by ER MD ED Course ED Course Orders Procedure Category Date Status Time Covid Rna Naat LAB 03/16/24 Complete 23:26 Influenza Type A & B, LAB 03/16/24 Complete Rapid 23:26 Rapid (Group A Strep) LAB 03/16/24 Complete 23:26 Chest 1vw RAD 03/16/24 Taken 23:26 Cbc With Differential LAB 03/16/24 Complete 23:45 Comprehensive LAB 03/16/24 Complete Metabolic Panel 23:45 Lipase LAB 03/16/24 Complete 23:45 0.9%Nacl 1000ml (Ns PHA 03/16/24 In Process 1000ml) 23:45 12 Lead Ekg Tracing- EKG 03/16/24 Logged Technical 23:45 Ondansetron 4mg Inj PHA 03/16/24 Complete (Zofran 4mg Inj) 23:45 Benzonatate 100 Mg PHA 03/16/24 Complete Capsule (Tessalon 100 23:59 Urinalysis LAB 03/17/24 Complete W/Microscopic 00:01 Culture Urine AYANNA 03/17/24 In Process 00:01 Insulin Regular, PHA 03/17/24 Complete Human 3ml (Humulin R 01:04 Current Medications Medications (Trade) Dose Ordered Sig/Ervin Route PRN Reason Start Time Stop Time Status Last Admin Dose Admin Benzonatate (Tessalon 100mg Caps) 200 mg ONCE STAT PO 03/16/24 23:59 03/17/24 00:01 DC 03/17/24 00:10 Insulin Human Regular (humuLIN R 100 UNIT/ML 3ML) 8 unit ONCE STAT IV 03/17/24 01:04 03/17/24 01:05 DC 03/17/24 01:29 Ondansetron HCl (zoFRAN 4MG INJ) 4 mg ONCE STAT IVP 03/16/24 23:45 03/16/24 23:46 DC 03/17/24 00:10 Sodium Chloride 1,000 ml @ 100 mls/hr Q10H STAT IV 03/16/24 23:45 03/17/24 09:44 03/17/24 00:10 Vital Signs Date Time Temp Pulse Resp B/P (MAP) Pulse Ox O2 Delivery O2 Flow Rate FiO2 03/17/24 02:10 98.4 86 16 140/67 97 Room Air* 0 21 03/17/24 00:03 98 18 134/64 100 Room Air* 0 21 03/16/24 23:24 97.9 101 18 164/76 99 Room Air Medical Decision Making MDM MDM: 58-year-old female with a history of hypertension, cholesterol, diabetes. coming in with complaints of coughing, throat pain and congestion with vomiting onset this morning along with dysuria.CBC shows no leukocytosis, no anemia, no thrombocytopenia. Corrected sodium of 136, initial blood sugar of 377, gave a L of NS and against of insulin IV, repeat sugar is 276. Patient was able to ambulate around the emergency room with O2 sats 98%, she did not desat and was able to tolerate walking. Discussed findings with patient. Educated patient that we will discharge her with Tessalon plus for her cough. Educated to follow up with her primary doctor in 1-2 days and to return to the emergency room symptoms sent. Differential diagnosis: Viral syndrome, pneumonia, URI, influenza, COVID Rationale: Tests considered and ordered secondary to shared decision making include: Previous outside records reviewed: Old ER visits. Risk of complication and/or morbidity or mortality of patient management: None Medications-Per medication reconciliation Need for hospitalization: Patient does not meet criteria for hospitalization. Need for emergency major/minor surgery: No There are no social concerns with this patient. Prescription drug management Prescriptions will include symptomatic care Patient's prior external medical records from other ER visits were reviewed by me as indicated. Prior testing and results from previous visits were reviewed. Prior tests were taken into account with medical decision making and resource ut ilization, independent historian/historians were used to obtain complete medical history. I independently interpreted the test that were performed, results were reviewed by me and considered findings on radiology if ordered. Medical management and examination interpretation discussions were had by me with other qualified healthcare professionals as indicated for the patient's car e. DX & DISP Disposition: Discharge Departure Impression: Primary Impression: Upper respiratory infection Additional Impression: Hyperglycemia Condition: Stable Scripts Ondansetron (Ondansetron Odt) 4 Mg Tab.rapdis 4 MG PO Q6HPRN PRN for nausea, #16 TAB 0 Refills Prov: CASTRO,MATTHEW KETTLE COORDINATOR 03/17/24 Benzonatate (Tessalon Perles) 100 Mg Cap 100 MG PO TID for cough for 10 Days, #30 CAP 0 Refills Prov: CASTRO,MATTHEW KETTLE COORDINATOR 03/17/24 Additional Instructions: Please follow up with your primary doctor in 1-2 days. Return to the emergency room if symptoms worsen. Referrals: FELIX BISHOP MD (PCP) Time of Disposition: 02:59 I have reviewed the case, and I agree with, Diagnosis and Plan MATTHEW CASTRO NP Mar 17, 2024 02:44
[2024-03-17] MEDS ORDERED: BENZ-39 PO (02:47)
[2024-03-17] MEDS ORDERED: ONDA-243 PO (02:47)
--- NOTE | 2024-03-17 05:20 | EKG ---
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
--- NOTE | 2024-03-17 08:38 | HMCIMG ---
CHEST 1VW REASON: COUGH COMPARISON: 01/12/2024 FINDINGS: Single view of the chest was obtained. Lungs are clear. Heart size is normal. There is no pulmonary vascular congestion. Mediastinum and bony thorax appear unremarkable. IMPRESSION: 1. Normal single view chest x-ray.
== END 2024-03-17 03:13 | disposition home or self-care (01) ==
LOC: EDH 23:23
DX: J06.9 Acute upper respiratory infection, unspecified (principal); E11.65 Type 2 diabetes mellitus with hyperglycemia; E78.00 Pure hypercholesterolemia, unspecified; I10 Essential (primary) hypertension; M19.90 Unspecified osteoarthritis, unspecified site; F17.200 Nicotine dependence, unspecified, uncomplicated; Z79.1 Long term (current) use of non-steroidal anti-inflammatories (NSAID); Z79.4 Long term (current) use of insulin; Z79.84 Long term (current) use of oral hypoglycemic drugs; Z79.85 Long-term (current) use of injectable non-insulin antidiabetic drugs; Z79.899 Other long term (current) drug therapy; Z87.19 Personal history of other diseases of the digestive system; Z88.0 Allergy status to penicillin; Z90.710 Acquired absence of both cervix and uterus; Z98.890 Other specified postprocedural states; Z20.822 Contact with and (suspected) exposure to COVID-19
CPT/HCPCS: 99285; 71045; 87635; 80053; 83690; 85025; 87086 ×2; 87186; 87880; 87804 ×2; 82948 ×2; 81001; 36415; 93005; 96374; 96361; 96375; J1815; J7030; J2405

== ENCOUNTER 2024-03-30 03:58 | Emergency (ER) | payer OTHER ==
[~2024-03-30] VITALS: Ht 154.9 cm; Wt 66.7 kg
[~2024-03-30 03:58] MED LIST changes: +BENZ-39 PO
--- NOTE | 2024-03-30 04:37 | ERN ---
General Chief Complaint: Headache Stated Complaint: C/O HEADACHE, DIZZINESS AND PAIN TO EARS Time Seen by MD: 04:00 Source: patient History of Present Illness Initial Comments Patient is a 58-year-old female coming in with bilateral neck discomfort. P atient states that this discomfort has been present since waking up he was has a nine. She states that when she rotates to the right or left she does get pain. No fever or chills no nausea no vomiting. Allergies: Coded Allergies: Penicillins (Unverified Allergy, Mild, HIVES / RASH, 03/01/19) Home Meds Active Scripts Ondansetron (Ondansetron Odt) 4 Mg Tab.rapdis, 4 MG PO Q6HPRN PRN for nausea, #16 TAB 0 Refills Prov:MATTHEW CASTRO GEODETIC ADVISOR 03/17/24 Benzonatate (Tessalon Perles) 100 Mg Cap, 100 MG PO TID for cough for 10 Days, #30 CAP 0 Refills Prov:MATTHEW CASTRO NP 03/17/24 Albuterol Sulfate (Proair Respiclick) 90 Mcg Aer.pow.ba, 2 PUFF IH Q4HPRN PRN for shortness of breath, #1 EACH 0 Refills Prov:KATINA BULLOCK MD 01/12/24 Azithromycin (Azithromycin) 250 Mg Tablet, 1 TAB PO AD for 5 Days, #6 TAB 0 Refills 2 the first day followed by 1 for days 2-5 Prov:KATINA BULLOCK MD 01/12/24 Ketorolac Tromethamine (Ketorolac Tromethamine) 10 Mg Tablet, 10 MG PO BID for 5 Days, #10 TAB Prov:RAMANDEEP MARY 01/01/24 Phenazopyridine HCl (Pyridium) 200 Mg Tab, 200 MG PO TIDPC, #6 TAB 0 Refills TAKE WITH FOOD TO PREVENT STOMACH UPSET. Prov:FATEMEH GLOVER Sr., MD 06/19/23 Nitrofurantoin/Nitrofuran Mac (Macrobid) 100 Mg Cap, 1 CAP PO BID for 7 Days, #14 CAP 0 Refills Prov:FATEMEH GLOVER Sr., MD 06/19/23 Cyclobenzaprine HCl (Flexeril) 10 Mg Tab, 10 MG PO TID for muscle spasm, #20 TAB 0 Refills Prov:CARYL ACOSTA MD 12/26/22 Ibuprofen (Ibuprofen) 600 Mg Tablet, 600 MG PO Q6H PRN for PAIN, #20 TAB Prov:CARYL ACOSTA MD 12/26/22 Ondansetron HCl (Ondansetron HCl) 4 Mg Tablet, 4 MG PO TIDP PRN for VOMITING, #20 TAB Prov:CASEY LARIOS MD 11/09/22 Albuterol Sulfate (Proair Digihaler) 90 Mcg Aer.pw.bas, 2 PUFF IH QID, #1 UNIT Prov:CASEY LARIOS MD 11/09/22 Prednisone (Prednisone) 20 Mg Tablet, 1 TAB PO AD for 6 Days, #14 TAB 0 Refills TAKE 3 TAB BY MOUTH daily X3 DAYS, THEN TAKE 2 TAB BY MOUTH daily X2 DAYS, THEN TAKE 1 TAB BY MOUTH ONCE A DAY X1 DAY. Prov:CASEY LARIOS MD 11/09/22 Ibuprofen (Motrin/Advil) 800 Mg Tab, 800 MG PO TID, #30 TAB Prov:CASEY LARIOS MD 11/09/22 Ondansetron (Ondansetron Odt) 4 Mg Tab.rapdis, 4 MG PO Q6HPRN PRN for nausea, #12 TAB 0 Refills Prov:CARYL ACOSTA MD 11/02/22 Pantoprazole Sodium (Pantoprazole Sodium) 20 Mg Tablet.dr, 20 MG PO DAILY, #30 TAB Prov:CARYL ACOSTA MD 11/02/22 Cephalexin (Cephalexin) 500 Mg Tablet, 500 MG PO BID for 4 Days, #8 TAB Start on 11/03/2022 Prov:CARYL ACOSTA MD 11/02/22 Ibuprofen (Motrin/Advil) 800 Mg Tab, 800 MG PO TID, #30 TAB Prov:CASEY LARIOS MD 05/10/22 Naproxen (Naproxen) 375 Mg Tablet.dr, 375 MG PO BID for 7 Days, #14 TAB Prov:LINDA CLARK MD 05/08/22 Reported Medications Losartan/Hydrochlorothiazide (Losartan-Hctz 50-12.5 mg Tab) 1 Each Tablet, 1 E ACH PO DAILY, TAB 05/11/22 Empagliflozin/Metformin HCl (Synjardy 12.5-1,000 mg Tablet) 1 Each Tablet, 1 EAC H PO DAILY, TAB 05/11/22 Gabapentin (Neurontin) 300 Mg Capsule, 300 MG PO TID, CAP 05/11/22 Insulin Degludec (Tresiba Flextouch U-100) 100 Unit/1 Ml Insuln.pen, 45 UNIT SQ DAILY, SYRINGE 05/11/22 Glimepiride (Glimepiride) 4 Mg Tablet, 4 MG PO BID, TAB 05/11/22 Metformin HCl (Metformin HCl) 1,000 Mg Tablet, 1000 MG PO BID, TAB 05/02/20 Dulaglutide (Trulicity) 1.5 Mg/0.5 Ml Pen.injctr, 1.5 MG SQ weekly 03/02/19 Past Medical History Past Medical History: Arthritis, Diabetes-Type II, High Cholesterol, Hypertension Medical History Other: GASTRITIS Past Surgical History: Hysterectomy, Surgical History Other: HERNIA REPAIR Social History Social History: Smokers, Lives with family, Other Female( History) History: Not Applicable ROS Dictation CONSTITUTIONAL: No chills, no fever, no weakness, no diaphoresis, no malaise. HEAD/FACE: No signs of trauma. EENT: No eye pain, no blurred vision, no tearing, no double vision, no ear pain, no ear discharge, no nose pain, no nasal congestion, no throat pain, no throat swelling, no mouth pain. RESPIRATORY: No cough, no orthopnea, no SOB, no stridor, no wheezing. CARDIOVASCULAR: No chest pain, no edema, no palpitations, no syncope. GASTROINTESTINAL/ABDOMINAL: No abdominal pain, no constipation, no diarrhea, no nausea, no vomiting. GENITOURINARY: No abnormal discharge, no dysuria, no frequent urination, no hematuria. No complaints of pain in the genitals. MUSCULOSKELETAL: back pain, no gout, no joint pain, no joint swelling, muscle pain, muscle stiffness, no neck pain. INTEGUMENTARY: No change in color, no change in hair/nails, no dryness, no lesion, no lumps, no rash. NEUROLOGICAL/PSYCH: No anxiety, not depressed, no emotional problem, no headache, no numbness, no pre-existing deficit, no history of seizures, no tremors, no weakness. HEMATOLOGIC/LYMPHATIC: Not anemic, no history of blood clots, no apparent bleeding, no bruising, glands not swollen. All Systems Negative, Except as Noted. Physical Exam Physical Exam Dictation VITAL SIGNS: Reviewed. GENERAL APPEARANCE: Alert, oriented x3, no acute distress, obese. HEAD AND FACE: Non-traumatic. EYES: PERRL, pink conjunctivas, eyelid no trauma, anterior chamber clear. EARS: Pinnas intact and no signs of trauma or erythema. Ear canals clear and no discharge. TMs no erythema. NOSE: No discharge, no bleeding. OROPHARYNX: Mouth normal, teeth no caries, tongue pink. Pharynx clear, no erythema. Tonsils no exudates, no abscesses noted. Mucous membrane moist. NECK: Supple, non-tender, no thyromegaly, no masses, no JVD, no bruits. BREAST: Deferred. CHEST: No tenderness, no crepitus, no paradoxical movement, no retractions. LUNGS: Clear, well-ventilated, symmetric, no rales, no wheezing, no rhonchi, no stridor, good breath sounds bilaterally. HEART: Regular rate, regular rhythm, no murmur, no gallops. VASCULAR: No peripheral edema. ABDOMEN: Soft, positive bowel sounds, nondistended, no guarding, nontender, no rebound, no masses no hepatomegaly, no splenomegaly, no Plasencia's sign, no hernias. RECTAL: Deferred. GENITAL: Deferred. NEUROLOGICAL: Normal speech, gross motor function intact, gross sensory function intact. MUSCULOSKELETAL: Neck tender, decreased range of motion, backside grinder, full range of motion. Bilateral trapezius muscle tenderness on palpation EXTREMITIES: Nontender, full range of motion. SKIN: Color pink, dry, no turgor, no rash, no lacerations, no abrasions, no contusions. LYMPHATICS: Deferred. Results Laboratory and Microbiology Lab and Micro Result Laboratory Tests Test 03/30/24 04:38 03/30/24 04:45 Urine Color LIGHT-YELLOW (YELLOW) Urine Appearance CLEAR (CLEAR) Urine pH 6.5 (5.0-8.0) Urine Specific [place] 1.023 (1.001-1.031) Urine Protein 10 mg/dL (NEGATIVE) H Urine Glucose (UA) >=1000 mg/dL (NEGATIVE) H Urine Ketones NEGATIVE mg/dL (NEGATIVE) Urine Occult Blood NEGATIVE (NEGATIVE) Urine Nitrate NEGATIVE (NEGATIVE) Urine Bilirubin NEGATIVE mg/dL (NEGATIVE) Urine Urobilinogen 0.2 mg/dL (0.2-1.0) Urine Leukocyte Esterase NEGATIVE Lucie/uL Urine RBC 6-10 /HPF (0-1) H Urine WBC 2-5 /HPF (0-1) H Urine Squamous Epithelial Cells MOD /HPF (0-2) Urine Bacteria MANY /HPF (None Seen) Influenza Type A Antigen Negative For Type A Influenza Type B Antigen Negative For Type B SARS-CoV-2, RNA, NAAT NEGATIVE SARS CoV-2 Group A Streptococcus Rapid negative (NEGATIVE) White Blood Count 10.7 K/uL (4.8-10.8) Red Blood Count 4.15 MIL/uL (4.00-5.50) Hemoglobin 11.2 g/dL (12.0-16.0) L Hematocrit 33.5 % (36-48) L Mean Corpuscular Volume 80.7 fL (79-99) Mean Corpuscular Hemoglobin 27.0 pg (27.0-33.0) Mean Corpuscular Hemoglobin Concent 33.4 g/dL (32.0-36.0) Red Cell Distribution Width 11.9 % (11.0-15.5) Platelet Count 340 K/uL (130-400) Mean Platelet Volume 9.6 fL (7.5-10.5) Immature Granulocyte % (Auto) 0.6 % (0-1) Neutrophils (%) (Auto) 67.6 % (40.0-77.0) Lymphocytes (%) (Auto) 24.2 % (21.0-51.0) Monocytes (%) (Auto) 5.6 % (3.0-13.0) Eosinophils (%) (Auto) 1.4 % (0.0-8.0) Basophils (%) (Auto) 0.6 % (0.0-5.0) Neutrophils # (Auto) 7.3 K/uL (1.8-7.7) Lymphocytes # (Auto) 2.6 K/uL (1.0-4.8) Monocytes # (Auto) 0.6 K/uL (0.1-1.0) Eosinophils # (Auto) 0.15 K/uL (0.00-0.70) Basophils # (Auto) 0.06 K/uL (0.00-0.20) Absolute Immature Granulocyte (auto 0.06 K/uL (0-1) Nucleated Red Blood Cells 0.0 % (0.0-0.19) Prothrombin Time 10.5 SEC (9.6-11.6) Prothromb Time International Ratio <= 0.93 (0.85-1.15) Activated Partial Thromboplast Time 29.0 SEC (26.3-35.5) Sodium Level 134 mmol/L (136-145) L Potassium Level 4.5 mmol/L (3.5-5.1) Chloride Level 97 mmol/L (101-111) L Carbon Dioxide Level 28 mmol/L (21-32) Blood Urea Nitrogen 15 mg/dL (7-18) Creatinine 0.8 mg/dL (0.5-1.0) Glomerular Filtration Rate Calc 85 mL/min (>90) Random Glucose 387 mg/dL (70-105) H Total Calcium 9.1 mg/dL (8.5-10.1) Magnesium Level 1.70 mg/dL (1.80-2.40) L Total Creatine Kinase 111 U/L (21-232) # Troponin I High Sensitivity 9 ng/L (4-50) B-Type Natriuretic Peptide 40 pg/mL (0-100) Labs Reviewed?: Yes EKG/XRAY/US/CT/MRI EKG Comment 03/30/2024 time 4:21 a.m. Ventricular rate 85 Sinus rhythm OR [address] wave elevation or depression MDM MDM: Differential diagnosis: Tension headache, muscle strain, torticollis, Rationale: Tests considered and ordered secondary to shared decision making include: Previous outside records reviewed: Old ER visits. Risk of complication and/or morbidity or mortality of patient management: None Medications-Per medication reconciliation Need for hospitalization: Patient does not meet criteria for hospitalization. Need for emergency major/minor surgery: No There are no social concerns with this patient. Prescription drug management Prescriptions will include symptomatic care Patient's prior external medical records from other ER visits were reviewed by me as indicated. Prior testing and results from previous visits were reviewed. Prior tests were taken into account with medical decision making and resource utilization, independent historian/historians were used to obtain complete medical history. I independently interpreted the test that were performed, results were reviewed by me and considered findings on radiology if ordered. Medical management and examination interpretation discussions were had by me with other qualified healthcare professionals as indicated for the patient's care. CC: Trapezius muscle upper neck pain The cardiac workup is negative CT of the Remarkable Symptoms are consistent with musculoskeletal pain. We will DC with the NSAIDs. ED Course Orders Procedure Category Date Status Time Cbc With Differential LAB 03/30/24 Complete 04:05 Prothrombin Time With LAB 03/30/24 Complete INR 04:05 B-Type Natriuretic LAB 03/30/24 Complete Peptide 04:05 Chest 1vw RAD 03/30/24 Taken 04:05 12 Lead Ekg Tracing- EKG 03/30/24 Complete Technical 04:05 Lactated Ringers PHA 03/30/24 Complete 1000ml (Lactated 04:30 Magnesium LAB 03/30/24 Complete 04:05 Creatine Kinase, Total LAB 03/30/24 Complete 04:05 Troponin I High LAB 03/30/24 Complete Sensitivity 04:05 Urinalysis Profile LAB 03/30/24 Complete 04:05 Partial LAB 03/30/24 Complete Thromboplastin Time 04:05 Basic Metabolic Panel LAB 03/30/24 Complete 04:05 Covid Rna Naat LAB 03/30/24 Complete 04:05 Influenza Type A & B, LAB 03/30/24 Complete Rapid 04:05 Rapid (Group A Strep) LAB 03/30/24 Complete 04:05 Acetaminophen 500mg PHA 03/30/24 Complete Tab (Tylenol 500mg T 04:30 Orphenadrine Citrate PHA 03/30/24 Complete (Norflex) 05:00 Culture Urine AYANNA 03/30/24 In Process 05:16 Magnesium 2gm Premix PHA 03/30/24 Complete 50ml (Magnesium 2gm 05:25 Ketorolac PHA 03/30/24 Complete Tromethamine 30mg/Ml 06:00 Ct Neck Soft Tiss CT 03/30/24 Resulted W/Contrast 06:24 Iohexol (Omnipaque) PHA 03/30/24 Complete 06:47 Current Medications Medications (Trade) Dose Ordered Sig/Ervin Route PRN Reason Start Time Stop Time Status Last Admin Dose Admin Acetaminophen (TYLenol 500MG TAB) 1,000 mg ONCE ONCE PO 03/30/24 04:30 03/30/24 04:31 DC 03/30/24 04:51 Iohexol (Omnipaque) 75 ml STK-MED ONCE IV 03/30/24 06:47 03/30/24 06:47 DC Ketorolac Tromethamine (toRADol) 30 mg ONCE ONCE IVP 03/30/24 06:00 03/30/24 06:01 DC 03/30/24 05:53 Lactated Ringer's 1,000 ml @ 0 mls/hr ONCE ONCE IV 03/30/24 04:30 03/30/24 04:31 DC 03/30/24 04:52 Magnesium Sulfate 50 ml @ 0 mls/hr PROTOCOL STAT IV 03/30/24 05:25 03/30/24 05:26 DC 03/30/24 05:55 Orphenadrine Citrate (Norflex) 60 mg ONCE ONCE IM 03/30/24 05:00 03/30/24 05:01 DC 03/30/24 04:57 Vital Signs Date Time Temp Pulse Resp B/P (MAP) Pulse Ox O2 Delivery O2 Flow Rate FiO2 03/30/24 07:11 98.4 79 18 165/65 97 Nasal Cannula* 2 28 03/30/24 06:33 98.4 85 18 165/65 98 Nasal Cannula* 2 28 03/30/24 05:08 98.4 85 18 177/80 93 Room Air* 0 21 03/30/24 04:00 97.7 90 20 180/79 98 Room Air DX & DISP Disposition: Discharge Departure Impression: Primary Impression: Musculoskeletal pain Additional Impressions: Dehydration, Headache Condition: Stable Scripts Meloxicam (Meloxicam) 15 Mg Tablet 15 MG PO DAILY PRN for PAIN for 10 Days, #10 TAB Prov: JONNY CLAYTON DO 03/30/24 Additional Instructions: Your symptoms are consistent with musculoskeletal type neck pain. The CT imaging of your neck is unremarkable. Your lab work is unremarkable other than some mild dehydration and elevated glucose levels. You received Toradol in the ER. I have prescribed meloxicam, which is an anti-inflammatory pain medication. Please use as needed. Please follow up with the primary doctor. Return to the emergency department as needed. Referrals: FELIX BISHOP MD (PCP) LINDA CLARK MD Mar 30, 2024 04:37 JONNY CLAYTON DO Mar 30, 2024 08:54
[2024-03-30] MEDS: acetaMINOPHEN 500 MG TABLET PO ONE (04:51)
[2024-03-30 04:52] LABS: BASOPHILS # (AUTO) 0.06 K/uL (0.00-0.20); BASOPHILS % (AUTO) 0.6 % (0.0-5.0); EOSINOPHILS # (AUTO) 0.15 K/uL (0.00-0.70); EOSINOPHILS % (AUTO) 1.4 % (0.0-8.0); HEMATOCRIT 33.5 % (36-48); IMMATURE GRANULOCYTE ABSOLUTE 0.06 K/uL (0-1); LYMPHOCYTES # (AUTO) 2.6 K/uL (1.0-4.8); LYMPHOCYTES % (AUTO) 24.2 % (21.0-51.0); MEAN CORPUSCULAR HGB CONC 33.4 g/dL (32.0-36.0); MEAN CORPUSCULAR VOLUME 80.7 fL (79-99); MONOCYTES # (AUTO) 0.6 K/uL (0.1-1.0); MONOCYTES % (AUTO) 5.6 % (3.0-13.0); NEUTROPHILS # (AUTO) 7.3 K/uL (1.8-7.7); NEUTROPHILS % (AUTO) 67.6 % (40.0-77.0); PLATELET COUNT (AUTO) 340 K/uL (130-400); RED BLOOD CELL COUNT(AUTO) 4.15 MIL/uL (4.00-5.50); RED CELL DISTRIBUTION WIDTH 11.9 % (11.0-15.5); WHITE BLOOD COUNT (AUTO) 10.7 K/uL (4.8-10.8)
[2024-03-30] MEDS: LACTATED RINGERS 1000ML 1,000 ML IV ONE (04:52)
[2024-03-30 04:56] LABS: APPEARANCE,URINE CLEAR (CLEAR); BILIRUBIN,URINE NEGATIVE (NEGATIVE); COLOR,URINE LIGHT-YELLOW (YELLOW); GLUCOSE, URINE (UA) >=1000 mg/dL (NEGATIVE); KETONES,URINE NEGATIVE (NEGATIVE); LEUKOCYTE ESTERASE ,URINE NEGATIVE Leu/uL (NEGATIVE); NITRATE,URINE NEGATIVE (NEGATIVE); OCCULT BLOOD,URINE NEGATIVE (NEGATIVE); PH,URINE 6.5 (5.0-8.0); PROTEIN,URINE 10 mg/dL (NEGATIVE); UROBILINOGEN,URINE 0.2 mg/dL (0.2-1.0)
[2024-03-30] MEDS: ORPHENADRINE 60MG/2ML IM ONE (04:57)
[2024-03-30 05:02] LABS: CREATININE 0.8 mg/dL (0.5-1.0); POTASSIUM 4.5 mmol/L (3.5-5.1)
[2024-03-30 05:02] LABS: ADD UA MICROSCOPIC YES; RAPID GROUP A STREP negative (NEGATIVE)
[2024-03-30 05:04] LABS: BACTERIA,URINE MANY /HPF (None Seen); MUCUS,URINE RARE LPF (None Seen); SQUAMOUS EPITHELIAL CELL,UR MOD /HPF (0-2)
[2024-03-30 05:06] LABS: SARS-CoV-2, RNA, NAAT NEGATIVE SARS CoV-2 (NEGATIVE)
[2024-03-30 05:07] LABS: MAGNESIUM 1.7 mg/dL (1.80-2.40)
[2024-03-30 05:08] LABS: INR <= 0.93 (0.85-1.15); PROTHROMBIN TIME 10.5 SEC (9.6-11.6)
[2024-03-30 05:10] LABS: INFLUENZA TYPE A Negative For Type A (NEGATIVE); INFLUENZA TYPE B Negative For Type B (NEGATIVE)
[2024-03-30 05:21] LABS: B-TYPE NATRIURETIC PEPTIDE 40 pg/mL (0-100)
[2024-03-30] MEDS: ketOROlac 30MG VIAL (30MG/ML) IVP ONE (05:53)
[2024-03-30] MEDS: MAGNESIUM 2GM PREMIX 50ML 50 ML IV STA (05:55)
[2024-03-30] MEDS ORDERED: IOHEXOL-350 75 ML VIAL IV ONE (06:47)
--- NOTE | 2024-03-30 06:53 | EKG ---
[facility] Test Date: 2024-03-30 Test Time: 04:21:16 Pat Name: ELIZABETH EHNSLEY Department: ED Room: Gender: F Consumer Advocate: [id number] : 1965 Requested By: LINDA CLARK Order Number: [id number] Reading MD: Darien Virk Measurements Intervals [place] Rate: 85 P: -5 MT: 164 QRS: -6 QRSD: 84 T: 28 QT: 350 QTc: 417 Interpretive Statements Sinus rhythm Compared to ECG 03/17/2024 01:02:08 No significant changes Electronically Signed On 03-30-2024 12:24:17 COMMUNICATIONS BILLING ANALYST by Darien Virk Please click the below link to view image of tracing.
--- NOTE | 2024-03-30 08:45 | HMCIMG ---
CT NECK SOFT TISS W/CONTRAST REASON: neck pain COMPARISON: None TECHNIQUE: Images are obtained from skull base through the thoracic inlet following IV contrast, 75 cc Omnipaque 350. FINDINGS: Skull base structures appear normal. Parotid and submandibular glands are unremarkable. Tongue, tonsillar fossa and parapharyngeal soft tissues appear normal. Airway appears unremarkable. There is no pathologic appearing cervical lymphadenopathy. Larynx, trachea and thyroid gland appear normal. Lung apices are clear. There are no focal masses or areas of abnormal contrast enhancement. IMPRESSION: 1. Negative postcontrast CT neck.
[2024-03-30] MEDS ORDERED: MELO-108 PO (08:53)
--- NOTE | 2024-03-30 08:53 | HMCIMG ---
CHEST 1VW REASON: cp COMPARISON: 03/16/2024 FINDINGS: Single view of the chest was obtained. Lungs are clear. Heart size is normal. There is no pulmonary vascular congestion. Mediastinum and bony thorax appear unremarkable. IMPRESSION: 1. Normal single view chest x-ray.
[2024-03-30 09:04] VITALS: BP 156/75; PULSE 71; RESP 18; TEMP 98.4; O2SAT 96
== END 2024-03-30 09:12 | disposition home or self-care (01) ==
LOC: EDH 03:58
DX: M54.2 Cervicalgia (principal); R51.9 Headache, unspecified; E86.0 Dehydration; E11.9 Type 2 diabetes mellitus without complications; E78.00 Pure hypercholesterolemia, unspecified; F17.200 Nicotine dependence, unspecified, uncomplicated; I10 Essential (primary) hypertension; M19.90 Unspecified osteoarthritis, unspecified site; Z20.822 Contact with and (suspected) exposure to COVID-19; Z79.1 Long term (current) use of non-steroidal anti-inflammatories (NSAID); Z79.01 Long term (current) use of anticoagulants; Z79.4 Long term (current) use of insulin; Z79.84 Long term (current) use of oral hypoglycemic drugs; Z79.85 Long-term (current) use of injectable non-insulin antidiabetic drugs; Z79.899 Other long term (current) drug therapy; Z88.0 Allergy status to penicillin; Z90.710 Acquired absence of both cervix and uterus; Z98.890 Other specified postprocedural states
CPT/HCPCS: 99285; 96374; 70491; 71045; 87635; 96361; 96375; 82550; 83735; 84484; 80048; 83880; 85025; 85610; 85730; 87086 ×2; 87186; 87880; 87804 ×2; 81001; 36415; 93005; 96372; J3475; J7120; J1885; Q9967; J2360

== ENCOUNTER → 2024-07-18 | Outpatient (CLI) | payer OTHER ==
[~2024-07-18] MED LIST changes: +MELO-108 PO
[2024-07-18 08:45] LABS: APPEARANCE,URINE CLEAR (CLEAR); BILIRUBIN,URINE NEGATIVE (NEGATIVE); COLOR,URINE LIGHT-YELLOW (YELLOW); GLUCOSE, URINE (UA) 300 mg/dL (NEGATIVE); KETONES,URINE NEGATIVE (NEGATIVE); LEUKOCYTE ESTERASE ,URINE 250 Leu/uL (NEGATIVE); NITRATE,URINE 1+ (NEGATIVE); OCCULT BLOOD,URINE NEGATIVE (NEGATIVE); PH,URINE 5.5 (5.0-8.0); PROTEIN,URINE NEGATIVE (NEGATIVE); UROBILINOGEN,URINE 0.2 mg/dL (0.2-1.0)
[2024-07-18 08:55] LABS: HEMOGLOBIN A1C 13.5 % (4.0-6.0)
[2024-07-18 08:58] LABS: ALBUMIN 3.1 g/dL (3.5-5.0); BILIRUBIN,TOTAL 0.3 mg/dL (0.2-1.0); CREATININE 0.8 mg/dL (0.5-1.0); POTASSIUM 4.6 mmol/L (3.5-5.1); TOTAL PROTEIN, SERUM 7.4 g/dL (6.0-8.3)
[2024-07-18 09:13] LABS: ADD UA MICROSCOPIC YES
[2024-07-18 09:15] LABS: BACTERIA,URINE MANY /HPF (None Seen); MUCUS,URINE RARE LPF (None Seen); SQUAMOUS EPITHELIAL CELL,UR FEW /HPF (0-2); WBC,URINE 26-50 /HPF (0-1)
== END | disposition home or self-care (01) ==
LOC: LAB 08:05
PROVIDERS: ATTEND Family Medicine
DX: I10 Essential (primary) hypertension (principal); E11.65 Type 2 diabetes mellitus with hyperglycemia; E78.2 Mixed hyperlipidemia; N39.0 Urinary tract infection, site not specified; R31.9 Hematuria, unspecified
CPT/HCPCS: 36415; 80053; 80061; 81001; 82043; 82570; 83036; 87086; 87186

== ENCOUNTER 2024-09-25 08:20 | Inpatient (IN) | payer OTHER ==
[~2024-09-25] VITALS: Ht 149.9 cm; Wt 64.2 kg
[2024-09-25 08:50] LABS: IMMATURE GRANULOCYTE ABSOLUTE 0.03 K/uL (0-1); NUCLEATED RED BLOOD CELLS 0.0 % (0.0-0.19); PLATELET COUNT (AUTO) 282 K/uL (130-400); RED BLOOD CELL COUNT(AUTO) 4.48 MIL/uL (4.00-5.50); RED CELL DISTRIBUTION WIDTH 12.2 % (11.0-15.5); WHITE BLOOD COUNT (AUTO) 8.2 K/uL (4.8-10.8)
[2024-09-25 09:07] LABS: RAPID GROUP A STREP negative (NEGATIVE)
[2024-09-25] MEDS: 0.9%NACL 1000ML 1,000 ML IV ONE (09:08)
[2024-09-25 09:09] LABS: SARS-CoV-2, RNA, NAAT NEGATIVE SARS CoV-2 (NEGATIVE)
[2024-09-25 09:11] LABS: ASPARTATE AMINOTRANSFERASE 18.0 U/L (10-37); CREATININE 0.8 mg/dL (0.5-1.0); GLOMERULAR FILTR. RATE CALC 84.0 mL/min (>90); SODIUM SERUM 132.0 mmol/L (136-145); TOTAL PROTEIN, SERUM 8.7 g/dL (6.0-8.3); UREA NITROGEN, BLOOD 13.0 mg/dL (7-18)
[2024-09-25 09:15] LABS: GLUCOSE,RANDOM 453.0 mg/dL (70-105)
[2024-09-25 09:16] LABS: INFLUENZA TYPE A Negative For Type A (NEGATIVE); INFLUENZA TYPE B Negative For Type B (NEGATIVE)
[2024-09-25 09:33] LABS: APPEARANCE,URINE CLEAR (CLEAR); GLUCOSE, URINE (UA) >=1000 mg/dL (NEGATIVE); LEUKOCYTE ESTERASE ,URINE NEGATIVE Leu/uL (NEGATIVE); NITRATE,URINE NEGATIVE (NEGATIVE); OCCULT BLOOD,URINE NEGATIVE (NEGATIVE)
--- NOTE | 2024-09-25 09:34 | HMCIMG ---
EXAM: CR Chest, 1 View. CLINICAL HISTORY: COUGH/CONGESTION COMPARISON: None provided. FINDINGS: LUNGS: There is no mass, infiltrate, or acute pulmonary abnormality. PLEURAL SPACES: No evidence of pleural effusion or pneumothorax. MEDIASTINUM: Cardiac size and mediastinal contours within normal limits. BONES: No acute osseous abnormality. IMPRESSION: No acute cardiopulmonary pathology is evident. /[place]
[2024-09-25 09:39] LABS: ADD UA MICROSCOPIC YES
[2024-09-25 09:42] LABS: SQUAMOUS EPITHELIAL CELL,UR RARE /HPF (0-2)
--- NOTE | 2024-09-25 09:47 | ERN ---
General Chief Complaint: Multiple Complaints Stated Complaint: COUGH,VOMITING,ELEVATED BLOOD SUGAR History of Present Illness Initial Comments 59-year-old female for generalized body weakness. Patient has been has been no concerns. Allergies: Coded Allergies: Penicillins (Unverified Allergy, Mild, HIVES / RASH, 03/01/19) Home Meds Active Scripts Meloxicam (Meloxicam) 15 Mg Tablet, 15 MG PO DAILY PRN for PAIN for 10 Days, #10 TAB Prov:JONNY CLAYTON DO 03/30/24 Ondansetron (Ondansetron Odt) 4 Mg Tab.rapdis, 4 MG PO Q6HPRN PRN for nausea, #16 TAB 0 Refills Prov:MATTHEW CASTRO INSURANCE ASSOCIATE 03/17/24 Benzonatate (Tessalon Perles) 100 Mg Cap, 100 MG PO TID for cough for 10 Days, #30 CAP 0 Refills Prov:MATTHEW CASTRO INSURANCE ASSOCIATE 03/17/24 Albuterol Sulfate (Proair Respiclick) 90 Mcg Aer.pow.ba, 2 PUFF IH Q4HPRN PRN for shortness of breath, #1 EACH 0 Refills Prov:KATINA BULLOCK MD 01/12/24 Azithromycin (Azithromycin) 250 Mg Tablet, 1 TAB PO AD for 5 Days, #6 TAB 0 Refills 2 the first day followed by 1 for days 2-5 Prov:KATINA BULLOCK MD 01/12/24 Ketorolac Tromethamine (Ketorolac Tromethamine) 10 Mg Tablet, 10 MG PO BID for 5 Days, #10 TAB Prov:RAMANDEEP MARY 01/01/24 Phenazopyridine HCl (Pyridium) 200 Mg Tab, 200 MG PO TIDPC, #6 TAB 0 Refills TAKE WITH FOOD TO PREVENT STOMACH UPSET. Prov:FATEMEH GLOVER Sr., MD 06/19/23 Nitrofurantoin/Nitrofuran Mac (Macrobid) 100 Mg Cap, 1 CAP PO BID for 7 Days, #14 CAP 0 Refills Prov:FATEMEH GLOVER Sr., MD 06/19/23 Cyclobenzaprine HCl (Flexeril) 10 Mg Tab, 10 MG PO TID for muscle spasm, #20 TAB 0 Refills Prov:CARYL ACOSTA MD 12/26/22 Ibuprofen (Ibuprofen) 600 Mg Tablet, 600 MG PO Q6H PRN for PAIN, #20 TAB Prov:CARYL ACOSTA MD 12/26/22 Ondansetron HCl (Ondansetron HCl) 4 Mg Tablet, 4 MG PO TIDP PRN for VOMITING, #20 TAB Prov:CASEY LARIOS MD 11/09/22 Albuterol Sulfate (Proair Digihaler) 90 Mcg Aer.pw.bas, 2 PUFF IH QID, #1 UNIT Prov:CASEY LARIOS MD 11/09/22 Prednisone (Prednisone) 20 Mg Tablet, 1 TAB PO AD for 6 Days, #14 TAB 0 Refills TAKE 3 TAB BY MOUTH daily X3 DAYS, THEN TAKE 2 TAB BY MOUTH daily X2 DAYS, THEN TAKE 1 TAB BY MOUTH ONCE A DAY X1 DAY. Prov:CASEY LARIOS MD 11/09/22 Ibuprofen (Motrin/Advil) 800 Mg Tab, 800 MG PO TID, #30 TAB Prov:CASEY LARIOS MD 11/09/22 Ondansetron (Ondansetron Odt) 4 Mg Tab.rapdis, 4 MG PO Q6HPRN PRN for nausea, #12 TAB 0 Refills Prov:CARYL ACOSTA MD 11/02/22 Pantoprazole Sodium (Pantoprazole Sodium) 20 Mg Tablet.dr, 20 MG PO DAILY, #30 TAB Prov:CARYL ACOSAT MD 11/02/22 Cephalexin (Cephalexin) 500 Mg Tablet, 500 MG PO BID for 4 Days, #8 TAB Start on 11/03/2022 Prov:CARYL ACOSTA MD 11/02/22 Ibuprofen (Motrin/Advil) 800 Mg Tab, 800 MG PO TID, #30 TAB Prov:CASEY LARIOS MD 05/10/22 Naproxen (Naproxen) 375 Mg Tablet.dr, 375 MG PO BID for 7 Days, #14 TAB Prov:LINDA CLARK MD 05/08/22 Reported Medications Losartan/Hydrochlorothiazide (Losartan-Hctz 50-12.5 mg Tab) 1 Each Tablet, 1 EAC H PO DAILY, TAB 05/11/22 Empagliflozin/Metformin HCl (Synjardy 12.5-1,000 mg Tablet) 1 Each Tablet, 1 EACH PO DAILY, TAB 05/11/22 Gabapentin (Neurontin) 300 Mg Capsule, 300 MG PO TID, CAP 05/11/22 Insulin Degludec (Tresiba Flextouch U-100) 100 Unit/1 Ml Insuln.pen, 45 UNIT SQ DAILY, SYRINGE 05/11/22 Glimepiride (Glimepiride) 4 Mg Tablet, 4 MG PO BID, TAB 05/11/22 Metformin HCl (Metformin HCl) 1,000 Mg Tablet, 1000 MG PO BID, TAB 05/02/20 Dulaglutide (Trulicity) 1.5 Mg/0.5 Ml Pen.injctr, 1.5 MG SQ weekly 03/02/19 Past Medical History Past Medical History: Arthritis, Diabetes-Type II, High Cholesterol, H ypertension Medical History Other: GASTRITIS Past Surgical History: Hysterectomy, Surgical History Other: HERNIA REPAIR Social History Social History: Smokers, Lives with family, Other Female( History) History: Not Applicable ROS Dictation Generalized body weakness Physical Exam Physical Exam Dictation VITAL SIGNS: Reviewed. GENERAL APPEARANCE: Alert, oriented x3, no acute distress, obese. HEAD AND FACE: Non-traumatic. EYES: PERRL, pink conjunctivas, eyelid no trauma, anterior chamber clear. EARS: Pinnas intact and no signs of trauma or erythema. Ear canals clear and no discharge. TMs no erythema. NOSE: No discharge, no bleeding. OROPHARYNX: Mouth normal, teeth no caries, tongue pink. Pharynx clear, no erythema. Tonsils no exudates, no abscesses noted. Mucous membrane moist. NECK: Supple, non-tender, no thyromegaly, no masses, no JVD, no bruits. BREAST: Deferred. CHEST: No tenderness, no crepitus, no paradoxical movement, no retractions. LUNGS: Clear, well-ventilated, symmetric, no rales, no wheezing, no rhonchi, no stridor, good breath sounds bilaterally. HEART: Regular rate, regular rhythm, no murmur, no gallops. VASCULAR: No peripheral edema. ABDOMEN: Soft, positive bowel sounds, nondistended, no guarding, nontender, no rebound, no masses no hepatomegaly, no splenomegaly, no Plasencia's sign, no hernias. RECTAL: Deferred. GENITAL: Deferred. NEUROLOGICAL: Normal speech, gross motor function intact, gross sensory function intact. MUSCULOSKELETAL: Neck nontender, full range of motion, back nontender, full range of motion. EXTREMITIES: Nontender, full range of motion. SKIN: Color pink, dry, no turgor, no rash, no lacerations, no abrasions, no con tusions. LYMPHATICS: Deferred. Results Laboratory and Microbiology Lab and Micro Result Laboratory Tests Test 09/25/24 08:36 09/25/24 09:10 White Blood Count 8.2 K/uL (4.8-10.8) Red Blood Count 4.48 MIL/uL (4.00-5.50) Hemoglobin 12.1 g/dL (12.0-16.0) Hematocrit 37.0 % (36-48) Mean Corpuscular Volume 82.6 fL (79-99) Mean Corpuscular Hemoglobin 27.0 pg (27.0-33.0) Mean Corpuscular Hemoglobin Concent 32.7 g/dL (32.0-36.0) Red Cell Distribution Width 12.2 % (11.0-15.5) Platelet Count 282 K/uL (130-400) Mean Platelet Volume 9.5 fL (7.5-10.5) Immature Granulocyte % (Auto) 0.4 % (0-1) Neutrophils (%) (Auto) 62.7 % (40.0-77.0) Lymphocytes (%) (Auto) 29.5 % (21.0-51.0) Monocytes (%) (Auto) 5.1 % (3.0-13.0) Eosinophils (%) (Auto) 1.7 % (0.0-8.0) Basophils (%) (Auto) 0.6 % (0.0-5.0) Neutrophils # (Auto) 5.1 K/uL (1.8-7.7) Lymphocytes # (Auto) 2.4 K/uL (1.0-4.8) Monocytes # (Auto) 0.4 K/uL (0.1-1.0) Eosinophils # (Auto) 0.14 K/uL (0.00-0.70) Basophils # (Auto) 0.05 K/uL (0.00-0.20) Absolute Immature Granulocyte (auto 0.03 K/uL (0-1) Nucleated Red Blood Cells 0.0 % (0.0-0.19) Sodium Level 132 mmol/L (136-145) L Potassium Level 4.0 mmol/L (3.5-5.1) Chloride Level 93 mmol/L (101-111) L Carbon Dioxide Level 28 mmol/L (21-32) Blood Urea Nitrogen 13 mg/dL (7-18) Creatinine 0.8 mg/dL (0.5-1.0) Glomerular Filtration Rate Calc 84 mL/min (>90) Random Glucose 453 mg/dL (70-105) *H Whole Blood Ketones Quantitative 0.3 mmol/L (0.0-0.6) Total Calcium 9.4 mg/dL (8.5-10.1) Total Bilirubin 0.4 mg/dL (0.2-1.0) Direct Bilirubin 0.1 mg/dL (0.0-0.3) Aspartate Amino Transf (AST/SGOT) 18 U/L (10-37) Alanine Aminotransferase (ALT/SGPT) 29 U/L (12-78) Alkaline Phosphatase 158 U/L (50-136) H Troponin I High Sensitivity 11 ng/L (4-50) Total Protein 8.7 g/dL (6.0-8.3) H Albumin 3.7 g/dL (3.5-5.0) Lipase 42 U/L (16-77) Influenza Type A Antigen Negative For Type A Influenza Type B Antigen Negative For Type B SARS-CoV-2, RNA, NAAT NEGATIVE SARS CoV-2 Group A Streptococcus Rapid negative (NEGATIVE) Urine Color COLORLESS (YELLOW) Urine Appearance CLEAR (CLEAR) Urine pH 5.5 (5.0-8.0) Urine Specific [place] 1.013 (1.001-1.031) Urine Protein 20 mg/dL (NEGATIVE) H Urine Glucose (UA) >=1000 mg/dL (NEGATIVE) H Urine Ketones NEGATIVE mg/dL (NEGATIVE) Urine Occult Blood NEGATIVE (NEGATIVE) Urine Nitrate NEGATIVE (NEGATIVE) Urine Bilirubin NEGATIVE mg/dL (NEGATIVE) Urine Urobilinogen 0.2 mg/dL (0.2-1.0) Urine Leukocyte Esterase NEGATIVE [place]ie/uL Urine RBC 2-5 /HPF (0-1) H Urine WBC 0-1 /HPF (0-1) Urine Squamous Epithelial Cells RARE /HPF (0-2) Urine Bacteria RARE /HPF (None Seen) MDM MDM: Differential diagnosis: Rationale: Tests considered and ordered secondary to shared decision making include: labs, ECG and radiology Previous outside records reviewed: Old ER visits. Risk of complication and/or morbidity or mortality of patient management: None Medications-Per medication reconciliation Need for hospitalization: Patient does meet criteria for hospitalization. Need for emergency major/minor surgery: No There are no social concerns with this patient. Prescription drug management Prescriptions will include symptomatic care Patient's prior external medical records from other ER visits were reviewed by me as indicated. Prior testing and results from previous visits were reviewed. Prior tests were taken into account with medical decision making and resource utilization, independent historian/historians were used to obtain complete medical history. I independently interpreted the test that were performed, results were reviewed by me and considered findings on radiology if ordered. Medical management and examination interpretation discussions were had by me with other qualified healthcare professionals as indicated for the patient's care. ED Course Orders Procedure Category Date Status Time Covid Rna Naat LAB 09/25/24 Complete 08:29 Rapid (Group A Strep) LAB 09/25/24 Complete 08:29 Influenza Type A & B, LAB 09/25/24 Complete Rapid 08:29 12 Lead Ekg Tracing- EKG 09/25/24 Logged Technical 08:35 Cbc With Differential LAB 09/25/24 Complete 08:35 Basic Metabolic Panel LAB 09/25/24 Complete 08:35 Hepatic Function Panel LAB 09/25/24 Complete 08:35 Lipase LAB 09/25/24 Complete 08:35 Ketone Blood LAB 09/25/24 Complete Quantitative 08:35 Troponin I High LAB 09/25/24 Complete Sensitivity 08:35 Urinalysis Profile LAB 09/25/24 Complete 08:35 Chest 1vw RAD 09/25/24 Resulted 08:35 0.9%Nacl 1000ml (Ns PHA 09/25/24 Complete 1000ml) 09:00 Ondansetron 4mg Inj PHA 09/25/24 Complete (Zofran 4mg Inj) 09:00 Current Medications Medications (Trade) Dose Ordered Sig/Ervin Route PRN Reason Start Time Stop Time Status Last Admin Dose Admin Ondansetron HCl (zoFRAN 4MG INJ) 4 mg ONCE ONCE IVP 09/25/24 09:00 09/25/24 09:01 DC 09/25/24 09:08 Sodium Chloride 1,000 ml @ 0 mls/hr ONCE ONCE IV 09/25/24 09:00 09/25/24 09:01 DC 09/25/24 09:08 Vital Signs Date Time Temp Pulse Resp B/P (MAP) Pulse Ox O2 Delivery O2 Flow Rate FiO2 09/25/24 08:56 94.5 87 18 174/72 98 Room Air* 0 21 09/25/24 08:22 97.9 87 16 174/72 98 Room Air 0 DX & DISP Disposition: Inpatient Departure Impression: Primary Impression: Hyperglycemia Condition: Stable Referrals: FELIX BISHOP MD (PCP) LOURDES GAGNON MD Sep 25, 2024 09:47
[2024-09-25] MEDS ORDERED: DEXTROSE 50%-WATER 50 ML DISP.SYRIN IV PRN (10:00)
[2024-09-25] MEDS ORDERED: LACTULOSE 20 GM/30 ML UDCUP PO PRN (10:00)
[2024-09-25] MEDS ORDERED: GLUCAGON 1MG KIT 1 MG ML IM PRN (10:00)
[2024-09-25] MEDS ORDERED: LACTATED RINGERS 1000ML 1,000 ML IV SCH (10:00)
[2024-09-25] MEDS: BENZONATATE 100 MG CAPSULE PO SCH (11:23)
--- NOTE | 2024-09-25 11:48 | NUR ---
PENDING HOME MEDICATIONS BY FAMILY TO BRING.
--- NOTE | 2024-09-25 13:32 | NUR ---
DCP: HOME Pt currently lives with her dgt. Pt does not have any DME, home health, or provider services at this time. Pt is gainfully employed with [employer]. Pt is able to complete ADLs independently. PCP is Dr Deep Dumont and uses [facility] for any RX needs. At [place] pt will want to go home and family can assist with transportation. Addendum: 09/25/24 at 1335 by [facility] SS Amended: Links added.
[2024-09-25] MEDS ORDERED: BENZONATATE 100 MG CAPSULE PO SCH (14:00)
--- NOTE | 2024-09-25 14:46 | HMCIMG ---
EXAM: US for Deep Venous Thrombosis, bilateral Lower Extremity. CLINICAL HISTORY: Leg Pain and Swelling TECHNIQUE: Real-time ultrasound scan of the veins of the bilateral lower extremity with color Doppler flow, spectral waveform analysis and compression. COMPARISON: None provided. FINDINGS: DEEP VEINS: The common femoral, superficial femoral, and popliteal veins are echolucent and compressible. There is normal color Doppler flow throughout. The visualized calf veins appear patent. SOFT TISSUES: No popliteal fossa cyst or other abnormalities. IMPRESSION: No deep venous thrombosis evident on bilateral lower extremity examination. /[place]
--- NOTE | 2024-09-25 15:55 | HP ---
[facility] HISTORY & PHYSICAL Date Patient Seen: Sep 25, 2024 Time of Visit: 15:24 Supervising Physician: Carolin Rodgers MD Primary Care Physician: Deep Velasco MD Outpatient Specialists: [ ] Inpatient Consults: NONE PROBLEM LIST: Uncontrolled type 2 diabetes mellitus with hyperglycemia, POA Pseudo hyponatremia 2/2 hyperglycemia, POA Transaminitis, POA Mild hyperproteinemia, POA Glucosuria, POA Hyperlipidemia Essential Hypertension Osteoarthritis Obesity BMI of 30.0 Suspected LUCA undiagnosed and untreated (Baseline Co2 28) HPI: This is a 59-year-old obese female with a past medical history of hypertension, hyperlipidemia, osteoarthritis, anemia and type 2 diabetes mellitus who presented to the ED for evaluation of nausea vomiting and cough. She reports she was previously on insulin for her diabetes but recently changed PCP and was changed to "pills" as per pt. Patient she has started with cough three days ago and started with swelling to bilateral lower extremities proximally one year ago and appears to worsen when standing or sitting. Patient also reports some tingling and decreased sensation to her lower extremities consistent with diabetic neuropathy for proximally one year. In the ED CBC was unremarkable, sodium of 132 chloride of 93 with a glucose of 453 mg/dL, alkaline phosphatase 158 total protein 8.7. No evidence of DKA is seven and but anion gap of 11 and CO2 of 28. Urinalysis showed protein of 20 glucose of greater than 1000, RBCs 2-5. Serology negative for influenza type a and B COVID-19 and strep throat. Chest x-ray shows no acute proning pulmonary pathology. Per ED physician would like patient is admitted for severe hyperglycemia with a glucose of 153 mg/dL. Patient was administered 1 L of NS . PAST MEDICAL HX: see above PAST SURGICAL HX: noncontributory SOCIAL HISTORY: No tobacco, ETOH, or illicit drug use Coded Allergies: Penicillins (Unverified Allergy, Mild, HIVES / RASH, 03/01/19) REVIEW OF SYSTEMS: Const: [no fever, fatigue, or weight changes] Eyes:[ no recent vision problems] ENT: [No congestion, ear pain, or sore throat] C/V: [no chest pain, palpitations or edema] Resp: + cough GI: + nausea : + polyuria M/S: [No joint or pain swelling] Skin: [No rash] Neuro: [no headache, focal numbness, or weakness, dizziness or seizures] Psych: [no depression or anxiety] Heme: [no abnormal bruising or bleeding] Lymph: [no swollen glands] PHYSICAL EXAM: GENERAL: alert, weak, awake oriented x 3 HEENT: EOMI, Sclera non icteric, moist mucosa NECK: Supple, no JVD, trachea midline LUNGS: Clear breath sounds bilaterally. No wheezes HEART: Regular rate and rhythm. Normal S1 and S2, without murmurs ABD: Abdomen soft, nontender. Bowel sounds present EXT: No clubbing cyanosis or edema NEURO: Alert and oriented to person, follows commands Vital Signs (last 8hr) Date Time Temp Pulse Resp B/P (MAP) Pulse Ox O2 Delivery O2 Flow Rate FiO2 09/25/24 13:44 94.5 84 18 104/37 93 Room Air* 0 21 09/25/24 08:56 94.5 87 18 174/72 98 Room Air* 0 21 09/25/24 08:22 97.9 87 16 174/72 98 Room Air 0 LABS: Hematology Labs: Test 09/25/24 08:36 Range/Units White Blood Count 8.2 4.8-10.8 K/uL Red Blood Count 4.48 4.00-5.50 MIL/uL Hemoglobin 12.1 12.0-16.0 g/dL Hematocrit 37.0 36-48 % Mean Corpuscular Volume 82.6 79-99 fL Mean Corpuscular Hemoglobin 27.0 27.0-33.0 pg Mean Corpuscular Hemoglobin Concent 32.7 32.0-36.0 g/dL Red Cell Distribution Width 12.2 11.0-15.5 % Platelet Count 282 130-400 K/uL Mean Platelet Volume 9.5 7.5-10.5 fL Immature Granulocyte % (Auto) 0.4 0-1 % Neutrophils (%) (Auto) 62.7 40.0-77.0 % Lymphocytes (%) (Auto) 29.5 21.0-51.0 % Monocytes (%) (Auto) 5.1 3.0-13.0 % Eosinophils (%) (Auto) 1.7 0.0-8.0 % Basophils (%) (Auto) 0.6 0.0-5.0 % Neutrophils # (Auto) 5.1 1.8-7.7 K/uL Lymphocytes # (Auto) 2.4 1.0-4.8 K/uL Monocytes # (Auto) 0.4 0.1-1.0 K/uL Eosinophils # (Auto) 0.14 0.00-0.70 K/uL Basophils # (Auto) 0.05 0.00-0.20 K/uL Absolute Immature Granulocyte (auto 0.03 0-1 K/uL Nucleated Red Blood Cells 0.0 0.0-0.19 % Chemistry Labs: Test 09/25/24 11:26 09/25/24 08:36 Range/Units Whole Blood Glucose 288 H 70-110 MG/DL Sodium Level 132 L 136-145 mmol/L Potassium Level 4.0 3.5-5.1 mmol/L Chloride Level 93 L 101-111 mmol/L Carbon Dioxide Level 28 21-32 mmol/L Blood Urea Nitrogen 13 7-18 mg/dL Creatinine 0.8 0.5-1.0 mg/dL Glomerular Filtration Rate Calc 84 >90 mL/min Random Glucose 453 *H 70-105 mg/dL Whole Blood Ketones Quantitative 0.3 0.0-0.6 mmol/L Total Calcium 9.4 8.5-10.1 mg/dL Total Bilirubin 0.4 0.2-1.0 mg/dL Direct Bilirubin 0.1 0.0-0.3 mg/dL Aspartate Amino Transf (AST/SGOT) 18 10-37 U/L Alanine Aminotransferase (ALT/SGPT) 29 12-78 U/L Alkaline Phosphatase 158 H 50-136 U/L Troponin I High Sensitivity 11 4-50 ng/L B-Type Natriuretic Peptide 32 0-100 pg/mL Total Protein 8.7 H 6.0-8.3 g/dL Albumin 3.7 3.5-5.0 g/dL Lipase 42 16-77 U/L DIAGNOSTICS / RADIOLOGY RESULTS: [[place] [address] [address] IMAGING REPORT Signed PATIENT: ELIZABETH HENSLEY MR#: [id number] : 1965 SEX: F AGE: 59 LOCATION: [facility] ORDER [id number] STATUS: ADM IN REPORT#: [id number] SERVICE 1152 REASON: BLE SWELLING ORDERING PHYSICIAN: URSZULA MAY PROCEDURE: VENOUS EDI - US VENOUS DOPPLER BILATERAL EXAM: US for Deep Venous Thrombosis, bilateral Lower Extremity. CLINICAL HISTORY: Leg Pain and Swelling TECHNIQUE: Real-time ultrasound scan of the veins of the bilateral lower extremity with color Doppler flow, spectral waveform analysis and compression. COMPARISON: None provided. FINDINGS: DEEP VEINS: The common femoral, superficial femoral, and popliteal veins are echolucent and compressible. There is normal color Doppler flow throughout. The visualized calf veins appear patent. SOFT TISSUES: No popliteal fossa cyst or other abnormalities. IMPRESSION: No deep venous thrombosis evident on bilateral lower extremity examination. /[place] DICTATED BY: TRISTAN KUMAR Jr., MD DATE: 09/25/24 154 ELECTRONICALLY SIGNED BY: TRISTAN KUMAR Jr., MD DATE: 09/25/24 154 ] [place] [address] IMAGING REPORT Signed PATIENT: ELIZABETH HENSLEY MR#: [id number] : 1965 SEX: F AGE: 59 LOCATION: [facility] ORDER [id number] STATUS: [facility] REPORT#: [id number] SERVICE 0835 REASON: COUGH/CONGESTION ORDERING PHYSICIAN: RAMANDEEP MARY PROCEDURE: CXR1VW - CHEST 1VW EXAM: CR Chest, 1 View. CLINICAL HISTORY: COUGH/CONGESTION COMPARISON: None provided. FINDINGS: LUNGS: There is no mass, infiltrate, or acute pulmonary abnormality. PLEURAL SPACES: No evidence of pleural effusion or pneumothorax. MEDIASTINUM: Cardiac size and mediastinal contours within normal limits. BONES: No acute osseous abnormality. IMPRESSION: No acute cardiopulmonary pathology is evident. /[place] DICTATED BY: TRISTAN KUMAR Jr., MD DATE: 09/25/24 1033 ELECTRONICALLY SIGNED BY: TRISTAN KUMAR Jr., MD DATE: 09/25/24 1033 PLAN Start Lantus 5 units subQ daily Regular insulin ISS # 2. A.c. and HS Reconcile home meds when available -daughter pending to bring. Susan pearls for cough BNP US Doppler negative for DVT SMOKER- Singulair 10mg po daily Azithromycin - NEURO: Minimize central acting medications as possible. Maintain fall precautions, adequate lighting during the day PULMONARY: Supplemental 02 as needed. Maintain aspiration precautions at all times CARDIOVASCULAR: Follow hemodynamics. Vital signs per facility protocol GI & NUTRITION: Continue with nutritional support. Continue stool softeners and laxatives as needed. KIDNEYS & ELECTROLYTES: Strict monitoring of intake, output and overall fluid balance. Avoid nephrotoxic medications to the extent possible. Medications to be dosed according to renal function. Monitor electrolytes and replace as needed ENDOCRINE: Maintain blood glucose between 100-180 at all times. Hypoglycemia protocol in place INFECTIOUS DISEASE: Trend temperature, WBC and procalcitonin level Follow cultures, deescalate antibiotics as soon as possible. Panculture if new onset fever ONCOLOGY/HEMATOLOGY/COAGULATION: Monitor for s/s of bleeding Monitor hemoglobin, coagulation studies as needed SKIN: Pressure ulcer prevention per facility protocol Specialty mattress ORTHO/REHAB: Continue PT/OT Prophylaxis: Continue GI and DVT prophylaxis Code Status: Full Resuscitation Disposition: TBD Other: Total patient care time exceeds 35 minutes excluding all procedures. URSZULA MAY [facility] Sep 25, 2024 15:55
[2024-09-25] MEDS: AZITHROMYCIN 250 MG TABLET PO ONE (18:00)
[2024-09-25 19:28] VITALS: PULSE 113; RESP 21; O2SAT 99
[2024-09-26] VITALS (8 sets, daily range): BP systolic 117–146; BP diastolic 48–65; PULSE 79–99; RESP 17–21; TEMP 97.5–98.4; O2SAT 92–99
[2024-09-26 06:05] LABS: IMMATURE GRANULOCYTE ABSOLUTE 0.04 K/uL (0-1); NUCLEATED RED BLOOD CELLS 0.0 % (0.0-0.19); PLATELET COUNT (AUTO) 261 K/uL (130-400); RED BLOOD CELL COUNT(AUTO) 3.71 MIL/uL (4.00-5.50); RED CELL DISTRIBUTION WIDTH 12.4 % (11.0-15.5); WHITE BLOOD COUNT (AUTO) 8.1 K/uL (4.8-10.8)
[2024-09-26 06:28] LABS: CREATININE 0.6 mg/dL (0.5-1.0); GLOMERULAR FILTR. RATE CALC 103.0 mL/min (>90); GLUCOSE,RANDOM 108.0 mg/dL (70-105); PHOSPHORUS 3.6 mg/dL (2.5-4.9); SODIUM SERUM 139.0 mmol/L (136-145); UREA NITROGEN, BLOOD 16.0 mg/dL (7-18)
--- NOTE | 2024-09-26 06:44 | EKG ---
[facility] Test Date: 2024-09-25 Test Time: 08:34:02 Pat Name: ELIZABETH HENSLEY Department: [facility] Room: 321 1 Gender: F Community Engagement Representative: [id number] : 1965 Requested By: RAMANDEEP MARY Order Number: [id number] Reading MD: Darien Virk Measurements Intervals [place] Rate: 85 P: -10 [place]: 163 QRS: 15 QRSD: 86 T: 29 QT: 356 QTc: 423 Interpretive Statements Sinus rhythm Compared to ECG 03/30/2024 04:21:16 No significant changes Electronically Signed On 09-26-2024 15:33:17 CDT by Darien Virk Please click the below link to view image of tracing.
[2024-09-26] MEDS: AZITHROMYCIN 250 MG TABLET PO SCH (09:28)
[2024-09-26] MEDS: FAMOTIDINE 20MG TAB PO SCH (09:28)
[2024-09-26] MEDS: ENOXAPARIN SODIUM 40 MG/0.4 ML SYRINGE SQ SCH (09:29)
--- NOTE | 2024-09-26 14:17 | NUR ---
DISCHARGE PT PIV DC'D PT VERBALIZED UNDERSTANDING OF DISCHARGE INSTRUCTIONS PT GATHERED AND TOOK ALL BELONGINGS PT HAD NO FURTHER QUESTIONS AT TIME OF DISCHARGE
--- NOTE | 2024-09-26 21:55 | DS ---
[facility] DISCHARGE SUMMARY Date Patient Seen: Sep 26, 2024 Time of Visit: 21:55 Supervising Physician: Dr. Rodgers Primary Care Physician: Deep Velasco MD Outpatient Specialists: [ ] Inpatient Consults: NONE HOSPITAL COURSE: HPI (per admitting provider) This is a 59-year-old obese female with a past medical history of hypertension, hyperlipidemia, osteoarthritis, anemia and type 2 diabetes mellitus who presented to the ED for evaluation of nausea vomiting and cough. She reports she was previously on insulin for her diabetes but recently changed PCP and was changed to "pills" as per pt. Patient she has started with cough three days ago and started with swelling to bilateral lower extremities proximally one year ago and appears to worsen when standing or sitting. Patient also reports some tingling and decreased sensation to her lower extremities consistent with diabetic neuropathy for proximally one year. In the ED CBC was unremarkable, sodium of 132 chloride of 93 with a glucose of 453 mg/dL, alkaline phosphatase 158 total protein 8.7. No evidence of DKA is seven and but anion gap of 11 and CO2 of 28. Urinalysis showed protein of 20 glucose of greater than 1000, RBCs 2-5. Serology negative for influenza type a and B COVID-19 and strep throat. Chest x-ray shows no acute proning pulmonary pathology. Per ED physician would like patient is admitted for severe hyperglycemia with a glucose of 153 mg/dL. Patient was administered 1 L of NS . The patient was treated for the following problems: Patient was admitted for hyperglycemia and pseudohyponatremia which was corrected in the ICU. Patient was then downgraded and blood sugars have stayed within normal parameters. She is being discharged on her home glucose medications with which she has been advised to remain compliant and recommended to visit her PCP for continued monitoring and re-evaluation of the patient's diabetic medications ACTIVE PROBLEM LIST FOR THE HOSPITALIZATION: Uncontrolled type 2 diabetes mellitus with hyperglycemia, POA Pseudo hyponatremia 2/2 hyperglycemia, POA Transaminitis, POA Mild hyperproteinemia, POA Glucosuria, POA CHRONIC PROBLEMS: continue previous management per PCP unless otherwise indicated Hyperlipidemia Essential Hypertension Osteoarthritis Obesity BMI of 30.0 Suspected LUCA undiagnosed and untreated (Baseline Co2 28) 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 PCP notified of patients admission, hospital course and discharge. PHYSICAL EXAM: GENERAL: alert, weak, awake oriented x 3 HEENT: EOMI, Sclera non icteric, moist mucosa NECK: Supple, no JVD, trachea midline LUNGS: Clear breath sounds bilaterally. No wheezes HEART: Regular rate and rhythm. Normal S1 and S2, without murmurs ABD: Abdomen soft, nontender. Bowel sounds present EXT: No clubbing cyanosis or edema NEURO: Alert and oriented to person, follows commands FOLLOW-UP: Follow-up with PCP in 2-3 days RECOMMENDATIONS: See Discharge Instructions This case was seen and discussed with my supervising physician. More than 30 minutes spent on discharge process, including evaluation of the patient, discussion with nursing staff, medication reconciliation and follow-up appointments MAAME MORALES Sep 26, 2024 21:55
== END 2024-09-26 15:00 | disposition home or self-care (01) | DRG 638 ==
LOC: EDH 08:20 → OBSVTOIN 09:47 → EDHIP 09:47 → 3DH 09-26 00:34
PROVIDERS: ADMIT Internal Medicine Critical Care Medicine; ATTEND Internal Medicine Critical Care Medicine
DX: E11.65 Type 2 diabetes mellitus with hyperglycemia (principal); E87.1 Hypo-osmolality and hyponatremia; E66.9 Obesity, unspecified; F17.200 Nicotine dependence, unspecified, uncomplicated; E88.09 Other disorders of plasma-protein metabolism, not elsewhere classified; E78.00 Pure hypercholesterolemia, unspecified; E11.40 Type 2 diabetes mellitus with diabetic neuropathy, unspecified; I10 Essential (primary) hypertension; Z79.4 Long term (current) use of insulin; Z88.0 Allergy status to penicillin; Z90.710 Acquired absence of both cervix and uterus; Z68.28 Body mass index [BMI] 28.0-28.9, adult
CPT/HCPCS: 36415; 71045; 80048; 80076; 81001; 82010; 82948; 83036; 83690; 83735; 83880; 84100; 84484; 85025; 87635; 87804; 87880; 93005; 93970; 94640; 94664; 96374; 99285; G0378; J1650; J1815; J2405

== ENCOUNTER → 2024-12-11 | Outpatient (CLI) | payer OTHER ==
[~2024-12-11] MED LIST changes: -ALBU90AE IH; -ALBU90AE3 IH; -AZIT250T9 PO; -BENZ-39 PO; -CEPH500T PO; -CYCL10TA16 PO; -DULA1.5P SQ; -EMPA1TAB7 PO; +FERS325 PO; -GABA300C PO; -GLIM4TAB36 PO; -IBUP-1493 PO; -IBUP-2070 PO; -INSU100I24 SQ; -KETO10TA2 PO; +LISI10TA24 PO; -LOSA1TAB37 PO; -MACR100 PO; -MELO-108 PO; -METF-446 PO; -NAPR-1505 PO; -ONDA-104 PO; -ONDA-243 PO; -PANT20TA18 PO; -PHEN-847 PO; +TRAMADOL PO
[2024-12-11] MEDS: REGADENOSON 0.4 MG/5 ML PF SYG IVP ONE (12:18)
--- NOTE | 2024-12-11 14:48 | HMCSR ---
APPROVED REPORT Height: 5 ft 2in Weight: 137 lbs TEST INDICATIONS Peripheral Vascular Diasease The imaging protocol used to acquire images was Rest Tc-99m/stress Tc-99m 1 day Consent: The procedure was explained and understood by the patient. Informerd consent was witnessed Altagracia Mg RN First, low dose rest was performed then high dose stress. RESTING DATA: The resting ekg shows: NSR Rest SPECT myocardial perfusion imaging was performed in supine position minutes following the intra venous injection of 11 mCi of Tc-99 Sestamibi. Time of rest injection: 10:45: Date: 12/11/2024 PHARMACOLOGIC STRESS: Pharmacologic stress test was performed by injecting regadenoson 0.4 mg IV push followed by the intra venous injection of 30 mCi of Tc-99 Sestamibi. Time of stress injection: 12:08: Date: 12/11/2024 Heart Rate at time of stress injection: 80 bpm. The images were gated to evaluate regional wall motion and calculate left ventricular ejection fracti on. STRESS DETAILS Reason for Termination: Infusion complete Stress Symptoms: Dyspnea, [place] Max HR Achieved: 100 bpm % of APMHR Achieved: 73 Max Blood Pressure: 149/64 mmHg Stress ECG: NSR Conclusion No ischemia No infarct LV ejection fraction 84% Normal LV wall motion Normal LV size at rest and stress No increased lung uptake
--- NOTE | 2024-12-11 21:50 | HMCIMG ---
EXAM: CR bilateral Knees, 4 View. CLINICAL HISTORY: BILAT KNEE PAIN COMPARISON: None provided. FINDINGS: BONES: No acute fracture or aggressive appearing osseous lesion. JOINTS: Mild bilateral tricompartmental degenerative changes SOFT TISSUES: The soft tissues are unremarkable. IMPRESSION: Mild bilateral tricompartmental degenerative changes /[place]
--- NOTE | 2024-12-11 21:58 | HMCIMG ---
EXAM: CR bilateral hand, 6 View. CLINICAL HISTORY: BILAT HAND PAIN COMPARISON: None provided. FINDINGS: BONES: Generalized osteopenia No fracture JOINTS: Mild diffuse degenerative changes SOFT TISSUES: The soft tissues appear within normal limits. No radiopaque foreign body is seen. IMPRESSION: 1. Generalized osteopenia 2. Mild diffuse degenerative changes 3. No fracture /[place]
== END | disposition home or self-care (01) ==
LOC: RAH 10:34
PROVIDERS: ATTEND Internal Medicine Cardiovascular Disease
DX: M17.0 Bilateral primary osteoarthritis of knee (principal); M19.042 Primary osteoarthritis, left hand; M19.041 Primary osteoarthritis, right hand; M85.88 Other specified disorders of bone density and structure, other site; I73.9 Peripheral vascular disease, unspecified
CPT/HCPCS: 78452; 73565; 73130; 93017; J2785; A9500 ×2; 73560

== ENCOUNTER → 2024-12-27 | Outpatient (CLI) | payer OTHER ==
[2024-12-27 10:00] LABS: SQUAMOUS EPITHELIAL CELL,UR RARE /HPF (0-2); YEAST,URINE BUDDING MANY /HPF (None Seen)
[2024-12-27 10:01] LABS: APPEARANCE,URINE CLEAR (CLEAR); GLUCOSE, URINE (UA) >=1000 mg/dL (NEGATIVE); LEUKOCYTE ESTERASE ,URINE NEGATIVE Leu/uL (NEGATIVE); NITRATE,URINE 1+ (NEGATIVE); OCCULT BLOOD,URINE NEGATIVE (NEGATIVE)
[2024-12-27 10:11] LABS: ASPARTATE AMINOTRANSFERASE 14.0 U/L (10-37); CREATININE 0.8 mg/dL (0.5-1.0); GLOMERULAR FILTR. RATE CALC 84.0 mL/min (>90); GLUCOSE,RANDOM 353.0 mg/dL (70-105); SODIUM SERUM 132.0 mmol/L (136-145); TOTAL PROTEIN, SERUM 7.6 g/dL (6.0-8.3); UREA NITROGEN, BLOOD 20.0 mg/dL (7-18)
== END | disposition home or self-care (01) ==
LOC: LAB 08:47
PROVIDERS: ATTEND Family Medicine
DX: I10 Essential (primary) hypertension (principal); E11.65 Type 2 diabetes mellitus with hyperglycemia; E78.2 Mixed hyperlipidemia; N39.0 Urinary tract infection, site not specified; R31.9 Hematuria, unspecified
CPT/HCPCS: 36415; 80053; 81001; 82043; 82570; 83036; 87086; 87186